=== PATIENT | male | born 1945 | race Caucasian/White ===

== ENCOUNTER 2017-11-11 00:06 | Inpatient (IN) | payer MEDICARE, MEDICAID ==
[2017-11-11] VITALS (53 sets, daily range): BP systolic 77–195; BP diastolic 27–143
[~2017-11-11] VITALS: Ht 175.3 cm; Wt 73.5 kg
[~2017-11-11 00:06] MED LIST: ASPI-495 PO; CLOP75TA15 PO; CYCL30DR; Cadexomer Iodine TP; DOCU-141 PO; ESOM40CA PO; EZET10TA14 PO; GEMF600T PO; GLIM4TAB PO; LINE600T2 PO; LISI-657 PO; METO200T3 PO; ROSU20TA PO; SITA100T PO; TAMS-12 PO; ZOLP5TAB2 PO
--- NOTE | 2017-11-11 00:06 | NUR ---
BBRA FROM HOME WITH C/O "ALTERED" AND AAOX0. PT PRESENTS TO ER BED 3 RESPONSIVE TO PAINFULY STIMULY ONLY. RESP EVEN AND SHALLOW SATING AT 86% RA. SKIN DRY AND INTACT. BLK AMUPATION NOTED. PT CAME IN WITH 18 L FOREARM IV FROM FIELD. PER DAUGHTER, LAST WELL KNOWN TIME WAS 2229." PER EMS, BLOOD GLUCOSE WAS 432 IN FIELD. BEDSIDE FOR EVAL.
--- NOTE | 2017-11-11 00:15 | NUR ---
CODE STROKE PAGED
--- NOTE | 2017-11-11 00:16 | NUR ---
CALLED [facility]. DR. DIALLO TLE PROVIDER.
--- NOTE | 2017-11-11 00:22 | NUR ---
TO CT VIA GRUNEY.
[2017-11-11] MEDS ORDERED: IOHEXOL-350 100 ML VIAL IV ONE (00:23)
[2017-11-11] MEDS ORDERED: CT SWABBABLE VALVE TRANS SET 1 EA INFUS.SET MC ONE (00:23)
[2017-11-11] MEDS ORDERED: IV NS 0.9% 500 ML IV ONE (00:25)
[2017-11-11 00:30] LABS: BASOPHILS % (AUTO) 0.2 % (0.0-2.0); HEMATOCRIT 48 % (39-51); HEMOGLOBIN 15.9 g/dL (13.5-17.5); LYMPHOCYTES # (AUTO) 0.8 /CMM (0.8-4.8); LYMPHOCYTES % (AUTO) 8.4 % (20.0-44.0); MEAN CORPUSCULAR HEMOGLOBIN 30 PG (26.0-33.0); MEAN CORPUSCULAR HGB CONC 33 g/dl (31.0-36.0); MEAN CORPUSCULAR VOLUME 89 fL (80-96); MONOCYTES # (AUTO) 0.4 /CMM (0.1-1.30); MONOCYTES % (AUTO) 3.7 % (2.0-12.0); NEUTROPHILS # (AUTO) 8.6 /CMM (1.8-8.9); NEUTROPHILS % (AUTO) 87.7 % (43.0-81.0); PLATELET COUNT (AUTO) 215 /CMM (150-450); RDW COEFFICIENT OF VARIATION 13.5 (11.5-15.0); RED BLOOD CELL COUNT(AUTO) 5.36 MIL/uL (4.5-6.0); WHITE BLOOD COUNT (AUTO) 9.9 K/uL (4.3-11.0)
--- NOTE | 2017-11-11 00:38 | NUR ---
ER TALKING TO TELESTROKE MD.
--- NOTE | 2017-11-11 00:39 | NUR ---
PT BACK FROM RADIOLOGY. PENDING CT RESULTS.
[2017-11-11 00:44] LABS: INR 0.95 (0.87-1.13)
[2017-11-11 00:45] LABS: CALCIUM, SERUM 9.2 mg/dL (8.5-10.1); CARBON DIOXIDE 25 mmol/L (21-32); CHLORIDE 99 mmol/L (98-107); CREATININE 1.4 mg/dL (0.6-1.3); POTASSIUM 4.9 mmol/L (3.5-5.1); SODIUM SERUM 132 mmol/L (136-145); UREA NITROGEN, BLOOD 19 mg/dL (7-18)
[2017-11-11 00:46] LABS: GLUCOSE 465 mg/dL (74-106)
[2017-11-11 00:52] LABS: TROPONIN I < 0.017 ng/mL (0.00-0.056)
[2017-11-11 00:54] LABS: ABG BASE EXCESS -5.5 mmol/L; ABG OXYGEN SATURATION 97.2 % (92.0-98.5); ABG PO2 114.6 mmHg (75.0-100.0); AaDO2 538.4 mmHg; COHb 2.8 % (0.5-1.5); MetHb 0.4 % (0.0-1.5); O2Hb 94.1 % (94.0-97.0); SITE, ABG Left Radial; VENT MODE, BG nrb
[2017-11-11] MEDS ORDERED: ALTEPLASE 100 MG/VIAL VIAL IV ONE (01:00)
[2017-11-11 01:09] LABS: CHOLESTEROL 284 mg/dL (<200); HDL CHOLESTEROL 29 mg/dL (40-60); LDL 165 mg/dL (0-99); TRIGLYCERIDES 610 mg/dL (30-150)
--- NOTE | 2017-11-11 01:15 | NUR ---
INFORMED BY DR. ALLEN TO NOT ADMINISTER ALTEPLASE PER TELE NEUROLOGY.
--- NOTE | 2017-11-11 01:21 | NUR ---
RT WANDER, REJI TELLEZ, ER MD ALLEN, EMT ELI AT BEDSIDE FOR INTUBATION.
--- NOTE | 2017-11-11 01:22 | NUR ---
MED FOR INTUBATION GIVEN BY REJI EUCEDA.
[2017-11-11] MEDS ORDERED: PROPOFOL 100 ML ONE (01:24)
--- NOTE | 2017-11-11 01:24 | NUR ---
PT INTUBATED BY DR. ALLEN ET-TUBE 7.5 FR, 23CM AT THE LIP LINE, (+) COLOR CHANGE ON THE CO2 DETECTOR WITH BILATERAL EQUAL BREATH SOUNDS. RT AT BEDSIDE TO PLACE PT ON VENT. VENT SETTING AC-16, TV-500, FIO2-100%, PEEP-5. WILL CONTINUE TO MONITOR PT CLOSELY.
[2017-11-11] MEDS: PROPOFOL 100 ML IV PRN ×6 (01:25→21:50)
--- NOTE | 2017-11-11 01:35 | NUR ---
INCREASED PROPOFOL TO 10MCG/KG/MIN. PT STILL AGITATTED AND MOVING, MD MADE AWARE. MD ORDERED PROPOFOL TITRATION TO BE SET TO 30MCG/KG/MIN.
--- NOTE | 2017-11-11 01:38 | NUR ---
RT NOTE PT ORALLY INTUBATED VIA ETT #7.5 23CM AT LIP PER ABG RESULT AND DR ALLEN REQUEST. PT PLACED ON [facility] VENT ON SETTINGS CHARTED. HOME HEALTH LVN CUFF PRESSURE NOTED. VENT PLUGGED INTO RED OUTLET. ALARMS ARE SET AND AUDIBLE. AMBU BAG BEDSIDE, WILL CONTINUE TO MONITOR Addendum: 11/11/17 at 0141 by WANDER BLAKE RT Amended: Links added.
--- NOTE | 2017-11-11 01:44 | NUR ---
ICU 263
[2017-11-11] MEDS ORDERED: INSULIN ASPART/LISPRO 100 UNIT/ML CARTRIDGE SQ STA (02:01)
--- NOTE | 2017-11-11 02:11 | NUR ---
DAI BOLIVAR DAUGHTER..
[2017-11-11 02:16] LABS: ABG BASE EXCESS -6.9 mmol/L; ABG OXYGEN SATURATION 99.4 % (92.0-98.5); ABG PCO2 63.4 mmHg (35.0-45.0); ABG PH 7.176 (7.350-7.450); ABG PO2 416.2 mmHg (75.0-100.0); AaDO2 233.4 mmHg; COHb 1.9 % (0.5-1.5); MetHb 0.6 % (0.0-1.5); O2Hb 96.9 % (94.0-97.0); SITE, ABG Left Radial; VENT MODE, BG AC 16 500 100% +5
--- NOTE | 2017-11-11 02:18 | NUR ---
RT ABG RESULTS SHOWN TO DR ALLEN. INCREASED RR TO 25, DECREASED FIO2 TO 50% PER DR ALLEN. WILL CONTINUE TO MONITOR. Addendum: 11/11/17 at 0219 by WANDER BLAKE RT Amended: Links added.
[2017-11-11] MEDS ORDERED: INSULIN REGULAR, HUMAN 100 UNIT/ML 10 ML VIAL ONE (02:24)
--- NOTE | 2017-11-11 02:28 | NUR ---
VERIFIED REGULAR INSULIN SQ 12UNIT GIVEN BY REJI TELLEZ.
[2017-11-11] MEDS ORDERED: ROCURONIUM BROMIDE 50 MG/5 ML IV ONE (02:30)
[2017-11-11] MEDS ORDERED: IV NS 0.9% 1,000 ML BAG IV ONE (02:30)
[2017-11-11] MEDS ORDERED: ETOMIDATE 2 MG/ML VIAL IV ONE (02:30)
[2017-11-11] MEDS ORDERED: INSULIN REGULAR, HUMAN 100 UNIT/ML 10 ML VIAL SQ ONE (02:30)
[2017-11-11] MEDS ORDERED: PIPERACILLIN /TAZOBACTAM 3.375 G in IV D5W 50 ML IV ONE (02:30)
--- NOTE | 2017-11-11 02:58 | NUR ---
RT AT BEDSIDE FOR ABG.
--- NOTE | 2017-11-11 03:00 | NUR ---
LAB CULTURES DRAWN UPON ARRIVAL TO ED BEFORE THE START OF ANTIBIOTICS PER VERBAL ORDER FROM DR. ALLEN.
[2017-11-11] MEDS ORDERED: HYDROMORPHONE 1 MG/1 ML DISP.SYRIN IV STA (03:17)
[2017-11-11 03:19] LABS: ABG BASE EXCESS -7.7 mmol/L; ABG PCO2 51.3 mmHg (35.0-45.0); ABG PH 7.219 (7.350-7.450); ABG PO2 95.6 mmHg (75.0-100.0); AaDO2 203.2 mmHg; COHb 1.6 % (0.5-1.5); MetHb 0.6 % (0.0-1.5); O2Hb 93.9 % (94.0-97.0); SITE, ABG Left Radial; VENT MODE, BG AC 25 500 50% +5
[2017-11-11] MEDS ORDERED: HYDROMORPHONE INJ 0.5 MG/0.5 ML SYRINGE ONE (03:24)
--- NOTE | 2017-11-11 03:25 | NUR ---
RT ABG RESULTS GIVEN TO DR ALLEN. INCREASED RR TO [address] ALLEN REQUEST. WILL CONTINUE TO MONITOR Addendum: 11/11/17 at 0326 by WANDER BLAKE RT Amended: Links added.
[2017-11-11] MEDS ORDERED: VANCOMYCIN 1 GM in IV D5W 250 ML IV STA (03:55)
[2017-11-11 04:28] LABS: APPEARANCE,URINE CLEAR (CLEAR); BILIRUBIN,URINE NEGATIVE (NEGATIVE); BLOOD, URINE 1+ Ery/uL (NEGATIVE); COLOR,URINE YELLOW (YELLOW); KETONES,URINE NEGATIVE (NEGATIVE); LEUKOCYTE ESTERASE ,URINE NEGATIVE (NEGATIVE); NITRITE, URINE NEGATIVE (NEGATIVE); PROTEIN,URINE 1+ mg/dl (NEGATIVE); UGLUCOSE 3+ mg/dL (NEGATIVE); UROBILINOGEN,URINE 0.2 EU/dL (0.2)
[2017-11-11] MEDS ORDERED: VANCOMYCIN 1 GM VIAL ONE (04:34)
[2017-11-11 04:36] LABS: BACTERIA,URINE None seen /HPF (None Seen); SQUAMOUS EPITHELIAL CELL,UR Few /HPF (None Seen); URINE AMORPHOUS URATE Few /HPF (None Seen); WBC,URINE 0-2 /HPF (0-3)
--- NOTE | 2017-11-11 04:40 | NUR ---
GAVE REPORT TO ICU NURSE FOR ERICA
--- NOTE | 2017-11-11 05:25 | NUR ---
EMT, RT, AND RN BEDSIDE FOR TRANSPORT TO ICU WITH ACLS PROTOCOL.
[2017-11-11] MEDS: IV NS 0.9% 1,000 ML IV PRN ×2 (06:40→21:44)
--- NOTE | 2017-11-11 06:45 | NUR ---
CASH APPLICATIONS SPECIALIST. ADMISSION.RECEIVED THE PT FROM ER VIA [facility]. ORALLY INTUBATED. SEDATED WITH DIPRIVAN. ADMITTED FOR RESPIRATORY FAILURE.AND STROKE, ETT 7.5,LIP 23CM,AC 25,TV 500,FIO2 50%,PEEP 5. SAT 98%. SCOUT EXECUTIVE SHOWING NSR. RT NARE NGT INTACT, CLAMPED. IV RT HAND 20G. IVF NS 75ML/H,DIPRIVAN 40MCG/KG/MIN.HOB ELEVATED. FC PATENT. WILL CONTINUE TO MONITOR VITALS.
--- NOTE | 2017-11-11 07:09 | NUR ---
PATCHER WOOD WELDER.NEURO CHECK UNABLE TO ASSESS. PT ON DIPRIVAN.
--- NOTE | 2017-11-11 07:13 | NUR ---
TEXTED DR. PERERA FOR MRI APPROVAL.
[2017-11-11] MEDS ORDERED: BLOOD SUGAR DIAGNOSTIC 1 EACH STRIP IN SCH ×5 (07:30→13:00)
[2017-11-11] MEDS ORDERED: FEE PK DOSING 1 MIN EA MC ONE (07:42)
--- NOTE | 2017-11-11 08:00 | NUR ---
SENIOR MOBILE APPLICATION DEVELOPER: pt.is sedated with Diprivan 40 mcg/kg/min well, on wrists restraints, reactive by pain stimuli, unable to assess stroke scale/NIHSS scale score, Neurologist consult order+, head CT: no acute findings, SR, SBP over 110 below 150, MAP 79-91, O2 sat. over 96%, T WNL, accuV AC HS, BS was 465 (nobody notified), now 393, current order: mild sl.scale, but not in eMAR, will fix, pH 7.17 last night/will repeat ABG, RD called: MRI is not approved, was in room/updated, see new orders, pt.has R.lung CA, 2D echo in process
[2017-11-11 08:30] LABS: BASOPHILS % (AUTO) 0.3 % (0.0-2.0); HEMATOCRIT 43 % (39-51); HEMOGLOBIN 14.4 g/dL (13.5-17.5); LYMPHOCYTES # (AUTO) 1.1 /CMM (0.8-4.8); LYMPHOCYTES % (AUTO) 12.7 % (20.0-44.0); MEAN CORPUSCULAR HEMOGLOBIN 30 PG (26.0-33.0); MEAN CORPUSCULAR HGB CONC 34 g/dl (31.0-36.0); MEAN CORPUSCULAR VOLUME 89 fL (80-96); MONOCYTES # (AUTO) 0.7 /CMM (0.1-1.30); MONOCYTES % (AUTO) 8.1 % (2.0-12.0); NEUTROPHILS # (AUTO) 6.7 /CMM (1.8-8.9); NEUTROPHILS % (AUTO) 78.9 % (43.0-81.0); PLATELET COUNT (AUTO) 221 /CMM (150-450); RDW COEFFICIENT OF VARIATION 13.8 (11.5-15.0); RED BLOOD CELL COUNT(AUTO) 4.79 MIL/uL (4.5-6.0); WHITE BLOOD COUNT (AUTO) 8.5 K/uL (4.3-11.0)
[2017-11-11 08:38] LABS: ABG BASE EXCESS -1.5 mmol/L; ABG OXYGEN SATURATION 99.1 % (92.0-98.5); ABG PCO2 32.4 mmHg (35.0-45.0); ABG PH 7.444 (7.350-7.450); AaDO2 108.1 mmHg; COHb 0.7 % (0.5-1.5); MetHb 0.3 % (0.0-1.5); O2Hb 98.1 % (94.0-97.0); PEEP,BG 5 cm H2O; SITE, ABG Right Brachial; VT, ABG 500 mL
--- NOTE | 2017-11-11 08:46 | NUR ---
DECREASED FIO2 FROM 50% TO 30% DUE TO PAO2 212 / SPO2 100% Addendum: 11/11/17 at 0846 by VANI DE LA O RT Amended: Links added.
--- NOTE | 2017-11-11 08:54 | NUR ---
INITIAL FINDING OF ECHO STUDY SHOWED EF OF 30%~. INFORMED ATTENDING NURSE OF RESULT.
[2017-11-11 08:55] LABS: ALANINE AMINOTRANSFERASE 11 U/L (12-78); ALBUMIN 2.9 g/dL (3.4-5.0); ALKALINE PHOSPHATASE 104 U/L (46-116); ASPARTATE AMINOTRANSFERASE 9 U/L (15-37); BILIRUBIN,TOTAL 0.3 mg/dL (0.2-1.0); CALCIUM, SERUM 9.1 mg/dL (8.5-10.1); CARBON DIOXIDE 23 mmol/L (21-32); CHLORIDE 102 mmol/L (98-107); CREATININE 1.5 mg/dL (0.6-1.3); MAGNESIUM 1.9 mg/dL (1.8-2.4); POTASSIUM 4.9 mmol/L (3.5-5.1); SODIUM SERUM 135 mmol/L (136-145); TOTAL PROTEIN, SERUM 6.7 g/dL (6.4-8.2); UREA NITROGEN, BLOOD 21 mg/dL (7-18)
[2017-11-11 09:00] LABS: GLUCOSE 404 mg/dL (74-106)
[2017-11-11] MEDS ORDERED: INSULIN REGULAR, HUMAN 100 UNIT/ML 3 ML VIAL SQ PRN (09:00)
[2017-11-11] MEDS ORDERED: GEMFIBROZIL 600 MG TABLET PO SCH (09:00)
[2017-11-11] MEDS ORDERED: DEXTROSE 50%-WATER 50 ML DISP.SYRIN IV PRN ×3 (09:00→13:00)
[2017-11-11] MEDS ORDERED: TAMSULOSIN 0.4 MG CAP.SR.24H PO SCH (09:00)
[2017-11-11] MEDS ORDERED: LINAGLIPTIN 5 MG TABLET PO SCH (09:00)
[2017-11-11] MEDS ORDERED: DOCUSATE SODIUM 100 MG CAPSULE PO SCH (09:00)
[2017-11-11] MEDS ORDERED: ASPIRIN EC 81 MG TABLET.DR PO SCH (09:00)
[2017-11-11] MEDS ORDERED: EZETIMIBE 10 MG TABLET PO SCH (09:00)
[2017-11-11] MEDS ORDERED: GLIMEPIRIDE 4 MG TABLET PO SCH (09:00)
--- NOTE | 2017-11-11 09:00 | NUR ---
FOUNDRY EQUIPMENT MECHANIC: pt.is on Aspirin, Plavix Addendum: 11/11/17 at 1633 by MANJULA MAHAN RN Amended: Links added.
[2017-11-11] MEDS: INSULIN REGULAR, HUMAN 100 UNIT/ML 3 ML VIAL SQ PRN ×4 (09:14→21:53)
--- NOTE | 2017-11-11 09:20 | NUR ---
RN ICI: updated re pt.condition,VS, I/O, IVF, labs, d/rebekah all PO DM meds, ordered Lantus 10 units sq q12h
[2017-11-11] MEDS: CLOPIDOGREL BISULFATE 75 MG TABLET PO SCH (09:40)
[2017-11-11] MEDS: ATORVASTATIN 40 MG TABLET PO SCH (09:40)
[2017-11-11] MEDS: PIPERACILLIN /TAZOBACTAM 3.375 G in IV D5W 50 ML IV SCH ×3 (09:47→21:42)
[2017-11-11] MEDS: PANTOPRAZOLE 40 MG VIAL IV SCH (09:49)
[2017-11-11] MEDS ORDERED: INSULIN GLARGINE, 100 UNIT/ML CARTRIDGE SQ SCH (10:00)
--- NOTE | 2017-11-11 10:00 | NUR ---
KEY ENTRY OPERATOR: evaluated pt., ABG, VS, sedation level, notified re all above, decreased FiO2. Fax with Lantus order was sent to pharmacy
[2017-11-11 10:11] LABS: CREATININE, URINE 39.8 MG/DL (30.0-125.0); URINE TOTAL PROTEIN 42.9 mg/dL (0-11.9)
--- NOTE | 2017-11-11 10:19 | NUR ---
GRANITE CUTTER APPRENTICE: pt.was transferred to ICU intubated/sedated, head CT: no acute finding, MRI is not approved, is on case, continue neurostatus assessment f/u orders, BS 404, 392/ notified/got new orders, VS WNL Addendum: 11/11/17 at 1024 by MANJULA MAHAN RN Amended: Links added.
--- NOTE | 2017-11-11 10:30 | NUR ---
IRONWORKER FOREMAN: pt daughter is in room, notified re pt.condition, sedation, VS, orders, POC, pt.is easy to be awake up after suction, reposition with restless, strong coughing, arms/R leg activity, increased sedation
--- NOTE | 2017-11-11 11:50 | NUR ---
STAMP MOUNTER: called to pharmacy to get Smitha White, is in room, updated with pt.current condition, sedation level, VS, I/O, labs, IVF, NPO, orders, spoke with pt.daughter
[2017-11-11] MEDS: BLOOD SUGAR DIAGNOSTIC 1 EACH STRIP IN SCH ×3 (12:59→21:50)
--- NOTE | 2017-11-11 13:40 | NUR ---
STUDENT FINANCIAL AID MANAGER: charge nurse updated: spoke with pt.daughter re Dx, POC, got Lantus from now from pharmacy instead 10.00 dose time, order: q12h, will charge doses time for 14.00, 02.00.
--- NOTE | 2017-11-11 14:30 | NUR ---
COREMAKER EXPERIMENTAL: RD called re chest CT order, sedation was increased and pt.is easy to get restless now with any reposition, suction, strong coughing episodes, notified: said ok to go for CT tomorrow morning, will endorse next nurse
[2017-11-11] MEDS: methylPREDNISolone SOD SUCC 125 MG/2ML VIAL IV SCH ×2 (14:49→21:42)
[2017-11-11] MEDS ORDERED: ETOMIDATE 2 MG/ML VIAL ONE (16:17)
[2017-11-11] MEDS: IPRATROPIUM NEB FS 0.5 MG/2.5 ML AMPUL.NEB NEB SCH ×3 (16:42→23:18)
[2017-11-11] MEDS: ALBUTEROL HALF STRENGTH 1.25 MG/3 ML VIAL.NEB NEB SCH ×3 (16:42→23:18)
[2017-11-11] MEDS: VANCOMYCIN 0.75 GM in IV NS 0.9% 250 ML IV SCH (17:24)
[2017-11-11] MEDS ORDERED: PEG 3350/NA SULF,BICARB,CL/KCL 4,000 ML BOTTLE PO ONE (18:00)
--- NOTE | 2017-11-11 19:09 | NUR ---
MRI ON HOLD,PATIENT ON VENT.DR. PERERA SPOKE WITH NEUROLOGY OK TO HOLD FOR NOW.
--- NOTE | 2017-11-11 19:30 | NUR ---
RN NOTE Received patient sedated, on 70mcg/kg/min of Propofol. On ETT .02/14, [facility] vent settings tolerated well at this time. suctioned airway as needed. 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 Right NGT in place, placement verified, no gastric residual, clamped and on NPO. F/C in place, via gravity. safety and comfort ensured. bed in low and locked position. will monitor closely.
[2017-11-12] VITALS (46 sets, daily range): BP systolic 94–152; BP diastolic 51–84
[2017-11-12] MEDS: PROPOFOL 100 ML IV PRN ×6 (02:08→20:07)
[2017-11-12] MEDS: PIPERACILLIN /TAZOBACTAM 3.375 G in IV D5W 50 ML IV SCH ×4 (02:10→20:45)
[2017-11-12] MEDS: BLOOD SUGAR DIAGNOSTIC 1 EACH STRIP IN SCH ×6 (02:11→20:45)
[2017-11-12] MEDS: INSULIN REGULAR, HUMAN 100 UNIT/ML 3 ML VIAL SQ PRN ×6 (02:14→20:56)
[2017-11-12] MEDS: INSULIN GLARGINE, 100 UNIT/ML CARTRIDGE SQ SCH ×2 (02:24→13:42)
--- NOTE | 2017-11-12 02:56 | NUR ---
RN NOTE Patient was able to be titrated down from propofol, was at 70mcg/kg/min and was down to 50mcg/kg/min. Patient however was observed to become agitated with accumulation of secretions orally. propofol titrated up to 55mcg/kg/min, with help at this time. VS stable, on close monitoring.
[2017-11-12] MEDS: IPRATROPIUM NEB FS 0.5 MG/2.5 ML AMPUL.NEB NEB SCH ×5 (03:24→19:46)
[2017-11-12] MEDS: ALBUTEROL HALF STRENGTH 1.25 MG/3 ML VIAL.NEB NEB SCH ×5 (03:24→19:46)
[2017-11-12 05:00] LABS: HEMATOCRIT 41 % (39-51); HEMOGLOBIN 13.8 g/dL (13.5-17.5); LYMPHOCYTES # (AUTO) 0.5 /CMM (0.8-4.8); LYMPHOCYTES % (AUTO) 6.4 % (20.0-44.0); MEAN CORPUSCULAR HEMOGLOBIN 30 PG (26.0-33.0); MEAN CORPUSCULAR HGB CONC 34 g/dl (31.0-36.0); MEAN CORPUSCULAR VOLUME 89 fL (80-96); MONOCYTES # (AUTO) 0.2 /CMM (0.1-1.30); MONOCYTES % (AUTO) 2.6 % (2.0-12.0); PLATELET COUNT (AUTO) 208 /CMM (150-450); RDW COEFFICIENT OF VARIATION 14.2 (11.5-15.0); RED BLOOD CELL COUNT(AUTO) 4.59 MIL/uL (4.5-6.0); WHITE BLOOD COUNT (AUTO) 7.7 K/uL (4.3-11.0)
[2017-11-12] MEDS: VANCOMYCIN 0.75 GM in IV NS 0.9% 250 ML IV SCH ×2 (05:09→17:23)
[2017-11-12 05:24] LABS: TROPONIN I 0.316 ng/mL (0.00-0.056)
[2017-11-12 05:29] LABS: ALANINE AMINOTRANSFERASE 10 U/L (12-78); ALBUMIN 2.7 g/dL (3.4-5.0); ALKALINE PHOSPHATASE 89 U/L (46-116); ASPARTATE AMINOTRANSFERASE 16 U/L (15-37); BILIRUBIN,TOTAL 0.3 mg/dL (0.2-1.0); CALCIUM, SERUM 9.2 mg/dL (8.5-10.1); CARBON DIOXIDE 22 mmol/L (21-32); CHLORIDE 103 mmol/L (98-107); CREATININE 1.4 mg/dL (0.6-1.3); GLUCOSE 276 mg/dL (74-106); MAGNESIUM 1.7 mg/dL (1.8-2.4); PHOSPHORUS 3.3 mg/dL (2.5-4.9); POTASSIUM 4.1 mmol/L (3.5-5.1); SODIUM SERUM 136 mmol/L (136-145); TOTAL PROTEIN, SERUM 6.6 g/dL (6.4-8.2); UREA NITROGEN, BLOOD 22 mg/dL (7-18)
[2017-11-12 05:32] LABS: CHOLESTEROL 249 mg/dL (<200); HDL CHOLESTEROL 34 mg/dL (40-60); LDL 171 mg/dL (0-99); THYROID STIMULATING HORMONE 0.398 uIU/mL (0.358-3.74); TRIGLYCERIDES 252 mg/dL (30-150)
--- NOTE | 2017-11-12 06:36 | NUR ---
RN NOTE PATIENT WITH NO ACUTE CHANGE IN CONDITION OBSERVED OVERNIGHT. ON 55mcg/kg/min, PATIENT IS SEDATED, VS STABLE. MECH VENT TOLERATED WELL. AIRWAY SUCTIONED. F/C INTACT. NGT CLAMPED. PATIENT TURNED AND REPOSITIONED. SAFETY AND COMFORT ENSURED. WILL ENDORSE ACCORDINGLY FOR CONTINUITY OF CARE.
[2017-11-12] MEDS ORDERED: Z GUARD REMEDY 4 OZ OINT TP PRN (07:00)
[2017-11-12] MEDS ORDERED: PANTOPRAZOLE 40 MG TABLET.DR PO SCH (07:30)
--- NOTE | 2017-11-12 07:37 | NUR ---
PIT RECORDER NOTE RCVD PT SEDATED, INTUBATED ETT 7.5 23 AT LIP TOLERATING ORDERED VENT SETTINGS WELL. SR ON TELE. BILATERAL SOFT WRIST RESTRAINTS IN PLACE. CIRCULATION CHECKS MADE. NG-TUBE PLACEMENT VERIFIED BY AUSCULTATION/ASPIRATION NO GASTRIC RESIDUAL OBTAINED. CONNELLY DRAINING CLEAR, YELLOW URINE. IV SITES C/D/I/PATENT. NO S/O INFILTRATION/PHLEBITIS OBSERVED UPON FLUSHING. WILL CONTINUE TO MONITOR PT FOR SAFETY AND COMFORT. CALL LIGHT WITHIN REACH. BED IN LOW AND LOCKED POSITION.
[2017-11-12] MEDS: ATORVASTATIN 40 MG TABLET PO SCH (08:28)
[2017-11-12] MEDS: methylPREDNISolone SOD SUCC 125 MG/2ML VIAL IV SCH ×2 (08:28→17:23)
[2017-11-12] MEDS: CLOPIDOGREL BISULFATE 75 MG TABLET PO SCH (08:29)
[2017-11-12] MEDS: Magnesium 1GM/D5W 100ML PREMIX 100 ML IV SCH ×2 (08:29→10:08)
[2017-11-12 08:30] LABS: ABG BASE EXCESS -5.2 mmol/L; ABG OXYGEN SATURATION 98.1 % (92.0-98.5); ABG PCO2 32.1 mmHg (35.0-45.0); ABG PH 7.384 (7.350-7.450); ABG PO2 129.7 mmHg (75.0-100.0); AaDO2 46.5 mmHg; COHb 0.1 % (0.5-1.5); MetHb 0.4 % (0.0-1.5); O2Hb 97.6 % (94.0-97.0); PEEP,BG 5 cm H2O; SITE, ABG Right Brachial; VT, ABG 500 mL
[2017-11-12] MEDS: PANTOPRAZOLE 40 MG VIAL IV SCH (08:31)
--- NOTE | 2017-11-12 09:10 | NUR ---
DECREASED FIO2 FROM 30% TO 28% DUE TO PAO2 129 / SPO2 100% Addendum: 11/12/17 at 0910 by VANI DE LA O RT Amended: Links added.
[2017-11-12] MEDS: ASPIRIN 81 MG TAB.CHEW PO SCH (09:19)
--- NOTE | 2017-11-12 09:37 | NUR ---
CLOSING SUPERVISOR NOTE PT TRANSPORTED TO RADIOLOGY FOR CT CHEST VIA MONITORED BED WITH RT AND RN AT BEDSIDE. PT'S VITAL SIGNS REMAINED STABLE DURING TRANSPORT, ON SEDATION.
--- NOTE | 2017-11-12 10:35 | NUR ---
SENIOR ARCHITECT/DESIGN MANAGER NOTE RADIOLOGY CALLED REQUESTING CT SCAN REPORT TO BE READ. DR. LINDSEY AND PT'S FAMILY IN UNIT. NEED TO DETERMINE PLAN OF CARE. AZRA WILL CALL FOR REPORT TO BE READ.
--- NOTE | 2017-11-12 11:01 | NUR ---
AMBULATORY CARE NURSE NOTE SEDATION VACATION DONE. PT ABLE TO FOLLOW SIMPLE COMMANDS SUCH OPEN AND CLOSE EYES, STICK TONGUE OUT. UNABLE TO SQUEEZE WITH BILATERAL HANDS. PT'S DAUGHTER AT BEDSIDE SERVED WATER SPONGER. SHE WAS UPDATED ON PT'S CONDITION. PT PLACED BACK ON SEDATION. VITAL REMAIN STABLE.
--- NOTE | 2017-11-12 19:06 | NUR ---
REAMING MACHINE TENDER NOTE PT REMAINS SEDATED, INTUBATED, TOLERATING ORDERED VENT SETTINGS WELL. SR ON TELE WITH 1ST DEGREE AV BLOCK. NG TUBE PLACEMENT VERIFIED BY AUSCULTATION/ASPIRATION. NO GASTRIC CONTENT OBTAINED UPON ASPIRATION. CONNELLY TO GRAVITY DRAINING CLEAR YELLOW URINE. IV SITES REMAIN C/D/I/PATENT. NO S/O INFILTRATION/PHLEBITIS OBSERVED UPON FLUSHING. PT'S CARE WILL BE ENDORSED TO KENO WRITER / RUNNER RN FOR CONTINUITY OF CARE.
--- NOTE | 2017-11-12 20:00 | NUR ---
SMT MACHINE OPERATOR NOTE PT RECEIVED IN BED SEDATED, INTUBATED ETT 7.5 23 AT LIP, TOLERATING THE VENT SETTINGS WELL. ON TELE MONITOR SR WITH 1ST DEGREE AV BLOCK HR 74. NO DISTRESS OR DISCOMFORT NOTED. NO S/S OF PAIN NOTED. ON BILATERAL SOFT WRIST RESTRAINTS ON. SKIN AROUND RESTRAINTS WNL. NGT RT NARE INTACT, PATENT AND IN PLACE. F/C INTACT AND PATENT DRAINING YELLOWISH COLOR URINE. IV SITE INTACT AND PATENT, NO S/S OF INFILTRATION NOTED. REMAIN ON DIPRIVAN 45 MCG/KG/HR INFUSING WELL. REPOSITION HIM FOR SKIN MANAGEMENT. SIDE RIALS UP X 3 AND CALL LIGHT WITHIN REACH. VSS. CONTINUE TO MONITOR HIM.
[2017-11-13] VITALS (54 sets, daily range): BP systolic 86–151; BP diastolic 48–83
[2017-11-13] MEDS: IPRATROPIUM NEB FS 0.5 MG/2.5 ML AMPUL.NEB NEB SCH ×6 (00:24→19:46)
[2017-11-13] MEDS: ALBUTEROL HALF STRENGTH 1.25 MG/3 ML VIAL.NEB NEB SCH ×6 (00:24→19:46)
[2017-11-13] MEDS: PROPOFOL 100 ML IV PRN ×5 (00:27→18:04)
[2017-11-13] MEDS: BLOOD SUGAR DIAGNOSTIC 1 EACH STRIP IN SCH ×6 (00:58→20:50)
[2017-11-13] MEDS: INSULIN REGULAR, HUMAN 100 UNIT/ML 3 ML VIAL SQ PRN ×6 (01:00→20:51)
[2017-11-13] MEDS: INSULIN GLARGINE, 100 UNIT/ML CARTRIDGE SQ SCH ×2 (01:03→14:22)
[2017-11-13] MEDS: PIPERACILLIN /TAZOBACTAM 3.375 G in IV D5W 50 ML IV SCH ×4 (02:29→20:49)
[2017-11-13 05:19] LABS: HEMATOCRIT 41 % (39-51); HEMOGLOBIN 13.8 g/dL (13.5-17.5); LYMPHOCYTES # (AUTO) 0.6 /CMM (0.8-4.8); LYMPHOCYTES % (AUTO) 6.9 % (20.0-44.0); MEAN CORPUSCULAR HEMOGLOBIN 30 PG (26.0-33.0); MEAN CORPUSCULAR HGB CONC 34 g/dl (31.0-36.0); MEAN CORPUSCULAR VOLUME 89 fL (80-96); MONOCYTES # (AUTO) 0.5 /CMM (0.1-1.30); MONOCYTES % (AUTO) 5.4 % (2.0-12.0); NEUTROPHILS # (AUTO) 8.2 /CMM (1.8-8.9); NEUTROPHILS % (AUTO) 87.7 % (43.0-81.0); PLATELET COUNT (AUTO) 213 /CMM (150-450); RDW COEFFICIENT OF VARIATION 13.7 (11.5-15.0); RED BLOOD CELL COUNT(AUTO) 4.57 MIL/uL (4.5-6.0); WHITE BLOOD COUNT (AUTO) 9.4 K/uL (4.3-11.0)
[2017-11-13 05:36] LABS: CALCIUM, SERUM 9.2 mg/dL (8.5-10.1); CARBON DIOXIDE 24 mmol/L (21-32); CHLORIDE 102 mmol/L (98-107); CREATININE 1.5 mg/dL (0.6-1.3); GLUCOSE 223 mg/dL (74-106); PHOSPHORUS 4.4 mg/dL (2.5-4.9); POTASSIUM 4.2 mmol/L (3.5-5.1); SODIUM SERUM 136 mmol/L (136-145); UREA NITROGEN, BLOOD 23 mg/dL (7-18)
[2017-11-13] MEDS: VANCOMYCIN 0.75 GM in IV NS 0.9% 250 ML IV SCH ×2 (06:04→16:53)
--- NOTE | 2017-11-13 06:39 | NUR ---
DIGITAL MARKETING OFFICER NOTE PT IN BED SEDATED. NO CHANGE IN CONDITION. ETT INTACT, PT TOLERATING VENT SETTINGS WELL. SUCTIONED HIM FREQUENTLY. CONTINUE ON DIPRIVAN 45 MCG/KG/HR. F/C INTACT AND PATENT DRAINING YELLOWISH COLOR URINE. REPOSITION HIM Q2H, KEPT HIM DRY AND CLEAN. ALL NEEDS ATTENDED. WILL ENDORSE TO DAY SHIFT NURSE FOR CONTINUE TO CARE.
--- NOTE | 2017-11-13 07:40 | NUR ---
INITIAL UTILIZATION COORDINATOR NOTE RCVD PT SEDATED, INTUBATED ETT 7.5 23 AT LIP, TOLERATING ORDERED VENT SETTINGS, ON BILATERAL SOFT WRIST RESTRAINTS. CIRCULATION CHECKS DONE. NG-TUBE PLACEMENT VERIFIED BY AUSCULTATION/ASPIRATION. GASTRIC CONTENTS OBSERVED. CONNELLY TO GRAVITY DRAINING CLEAR, YELLOW URINE. IV SITES C/D/I/PATENT. NO S/O INFILTRATION/PHLEBITIS OBSERVED UPON FLUSHING. WILL CONTINUE TO MONITOR PT FOR SAFETY AND COMFORT. CALL LIGHT WITHIN REACH. BED IN LOW AND LOCKED POSITION.
[2017-11-13] MEDS: CLOPIDOGREL BISULFATE 75 MG TABLET PO SCH (08:08)
[2017-11-13] MEDS: methylPREDNISolone SOD SUCC 125 MG/2ML VIAL IV SCH ×2 (08:08→16:53)
[2017-11-13] MEDS: ASPIRIN 81 MG TAB.CHEW PO SCH (08:08)
[2017-11-13] MEDS: ATORVASTATIN 40 MG TABLET PO SCH (08:08)
[2017-11-13] MEDS: PANTOPRAZOLE 40 MG VIAL IV SCH (08:34)
[2017-11-13 08:39] LABS: ABG BASE EXCESS -2.9 mmol/L; ABG OXYGEN SATURATION 97.7 % (92.0-98.5); ABG PCO2 35.7 mmHg (35.0-45.0); ABG PH 7.394 (7.350-7.450); ABG PO2 119.7 mmHg (75.0-100.0); AaDO2 37.8 mmHg; COHb 0.4 % (0.5-1.5); MetHb 0.4 % (0.0-1.5); O2Hb 96.9 % (94.0-97.0); PEEP,BG 5 cm H2O; SITE, ABG Right Brachial; VT, ABG 500 mL
--- NOTE | 2017-11-13 08:53 | NUR ---
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 SCARRING NOTED TO RT ANKLE AND SACRAL AREA. ALL SKIN PROTECTION RECOMMENDATIONS DISCUSSED WITH NURSING STAFF. RECOMMEND SURGICAL CONSULT FOR LEFT LEG ESCHAR. PT ON FIRST STEP MATTRESS. CURRENT YOLANDA SCORE IS 10. WILL SEE PRN. GONZALEZ IN AGREEMENT WITH PLAN OF CARE. Addendum: 11/13/17 at 0856 by MOSES BROWER WNDNU Amended: Links added.
--- NOTE | 2017-11-13 10:11 | NUR ---
LISW NOTE DR. BEAR IN UNIT ASSESSING PT SHE WAS UPDATED ON PT'S CONDITION. SHE RECOMMENDED TO DISCONTINUE STROKE BUNDLE AT THIS TIME SINCE SHE DOES NOT BELIEVE PT HAD STROKE DURING THIS ADMISSION. PER HER RECOMMENDATION WILL DISCONTINUE STROKE ASSESSMENTS.
--- NOTE | 2017-11-13 10:46 | NUR ---
SPRAY MIXER NOTE SEDATION VACATION PERFORMED VIA IRANIAN CAR CONSTRUCTION SUPERINTENDENT, VIC RUTH. PT ABLE TO FOLLOW COMMANDS SUCH SQUEEZE HANDS BILATERALLY, OPEN/CLOSE EYES. WILL CONTINUE TO MONITOR.
--- NOTE | 2017-11-13 11:15 | NUR ---
Social service consult requested by RUBÉN Tate for Stroke. Pt. is a 72 year old male who was admitted to [facility] for Respiratory failure. SW is unable to meet with pt. at this time since pt. is intubated. SW to follow up with pt. once pt. is extubated.
--- NOTE | 2017-11-13 15:23 | NUR ---
STANDPIPE TENDER NOTE BRONCHOSCOPY R/S FOR TOMORROW, PT'S DAUGHTER UPDATED.
--- NOTE | 2017-11-13 19:21 | NUR ---
COMMERCIAL TITLE EXAMINER NOTE PT LIGHTLY SEDATED, INTUBATED TOLERATING VENT SETTINGS WELL. SR ON TELE WITH 1ST AVB AND OCCASIONAL PVC. BILATERAL SOFT WRIST RESTRAINTS IN PLACE. CIRCULATION CHECKS DONE. NG-TUBE PLACEMENT VERIFIED BY AUSCULTATION/ASPIRATION. CONNELLY OT GRAVITY DRAINING YELLOW URINE. IV SITES REMAIN C/D/I/PATENT. NO S/O INFILTRATION/PHLEBITIS OBSERVED UPON FLUSHING. PT'S CARE ENDORSED TO RADIATION ENGINEER RN FOR CONTINUITY OF CARE. BED IN LOW AND LOCKED POSITION.
--- NOTE | 2017-11-13 20:00 | NUR ---
CYLINDER DEVALVER - NOTES - RECEIVED PT SEDATED, INTUBATED ETT 7.5 23 AT LIP, TOLERATING ORDERED VENT SETTINGS, ON BILATERAL SOFT WRIST RESTRAINTS. CIRCULATION CHECKS DONE. NG-TUBE PLACEMENT VERIFIED BY AUSCULTATION/ASPIRATION. GASTRIC CONTENTS OBSERVED. CONNELLY TO GRAVITY DRAINING CLEAR, YELLOW URINE. IV SITES C/D/I/PATENT. NO S/O INFILTRATION/PHLEBITIS OBSERVED UPON FLUSHING. WILL CONTINUE TO MONITOR PT FOR SAFETY AND COMFORT. CALL LIGHT WITHIN REACH. BED IN LOW AND LOCKED POSITION.
[2017-11-14] VITALS (60 sets, daily range): BP systolic 97–145; BP diastolic 49–82
[2017-11-14] MEDS: IPRATROPIUM NEB FS 0.5 MG/2.5 ML AMPUL.NEB NEB SCH ×8 (00:12→22:46)
[2017-11-14] MEDS: ALBUTEROL HALF STRENGTH 1.25 MG/3 ML VIAL.NEB NEB SCH ×8 (00:12→22:46)
[2017-11-14] MEDS: BLOOD SUGAR DIAGNOSTIC 1 EACH STRIP IN SCH ×6 (00:23→21:48)
[2017-11-14] MEDS: PROPOFOL 100 ML IV PRN ×5 (00:24→21:08)
[2017-11-14] MEDS: INSULIN REGULAR, HUMAN 100 UNIT/ML 3 ML VIAL SQ PRN ×6 (00:38→21:53)
[2017-11-14] MEDS: INSULIN GLARGINE, 100 UNIT/ML CARTRIDGE SQ SCH ×2 (02:28→13:14)
[2017-11-14] MEDS: PIPERACILLIN /TAZOBACTAM 3.375 G in IV D5W 50 ML IV SCH ×4 (02:29→21:07)
[2017-11-14] MEDS: VANCOMYCIN 0.75 GM in IV NS 0.9% 250 ML IV SCH ×2 (04:08→17:57)
[2017-11-14 05:24] LABS: CALCIUM, SERUM 9.2 mg/dL (8.5-10.1); CARBON DIOXIDE 23 mmol/L (21-32); CHLORIDE 103 mmol/L (98-107); CREATININE 1.3 mg/dL (0.6-1.3); GLUCOSE 202 mg/dL (74-106); POTASSIUM 3.9 mmol/L (3.5-5.1); SODIUM SERUM 138 mmol/L (136-145); UREA NITROGEN, BLOOD 25 mg/dL (7-18)
--- NOTE | 2017-11-14 07:45 | NUR ---
INITIAL HAND CANDY CUTTER NOTE RCVD PT SEDATED, ABLE TO WAKE UP TO NAME/LIGHT TOUCH. BILATERAL SOFT WRIST RESTRAINTS IN PLACE. CIRCULATION CHECKS PERFORMED. INTUBATED ETT 7.5 23 AT LIP TOLERATING ORDERED VENT SETTINGS. SR WITH 1ST AVB ON TELE. NG-TUBE CLAMPED PLACEMENT VERIFIED BY AUSCULTATION/ASPIRATION, YELLOW SEE THROUGH GASTRIC CONTENT OBSERVED IN TUBING UPON ASPIRATING. CONNELLY TO GRAVITY DRAINING YELLOW URINE. IV SITES C/D/I/PATENT. NO S/O INFILTRATION/PHLEBITIS OBSERVED UPON FLUSHING. WILL CONTINUE TO MONITOR PT FOR SAFETY AND COMFORT. BED IN LOW AND LOCKED POSITION.
[2017-11-14] MEDS: methylPREDNISolone SOD SUCC 125 MG/2ML VIAL IV SCH ×2 (08:07→17:57)
[2017-11-14] MEDS: ATORVASTATIN 40 MG TABLET PO SCH (08:07)
[2017-11-14] MEDS: CLOPIDOGREL BISULFATE 75 MG TABLET PO SCH (08:10)
[2017-11-14] MEDS: ASPIRIN 81 MG TAB.CHEW PO SCH (08:10)
[2017-11-14] MEDS: PANTOPRAZOLE 40 MG VIAL IV SCH (09:43)
--- NOTE | 2017-11-14 09:45 | NUR ---
PLANNING CONSULTANT NOTE HENOK, SCENIC DESIGNER FOR DR. BEAR GIVEN UPDATE ON PT'S CONDITION. PT TO UNDERGO BRONCHOSCOPY THIS AFTERNOON.
[2017-11-14] MEDS ORDERED: LORAZEPAM INJ 2 MG/ML VIAL IV STA (15:19)
[2017-11-14] MEDS ORDERED: MORPHINE SULFATE INJ 4 MG/ML DISP.SYRIN SQ STA (15:19)
[2017-11-14] MEDS ORDERED: MORPHINE SULFATE INJ 10 MG/ML DISP.SYRIN ONE (15:21)
[2017-11-14] MEDS ORDERED: LIDOCAINE 2% JEL 5 ML TUBE MC ONE (15:30)
--- NOTE | 2017-11-14 16:17 | NUR ---
MEDICATION SENIOR VICE PRESIDENT AND CHIEF INFORMATION OFFICER NOTE ASA AND PLAVIX HELD THIS AM DUE TO BRONCHOSCOPY PER DR. CHO'S RECOMMENDATION. DURING BRONCHOSCOPY ATIVAN 2 MG WAS GIVEN ORDERED BY DR. LINDSEY. THE REMAINDER DOSE OF ATIVAN 4 MG AND MORPHINE 10 MG WAS RETURNED TO [facility] WITH CRN. SHELIA
[2017-11-14 16:49] LABS: ABG BASE EXCESS -1.8 mmol/L; ABG OXYGEN SATURATION 99.4 % (92.0-98.5); ABG PH 7.409 (7.350-7.450); ABG PO2 556.3 mmHg (75.0-100.0); AaDO2 120.7 mmHg; COHb 0.3 % (0.5-1.5); MetHb 0.5 % (0.0-1.5); O2Hb 98.6 % (94.0-97.0); PEEP,BG 5 cm H2O; SITE, ABG Right Radial; VT, ABG 500 mL
--- NOTE | 2017-11-14 17:07 | NUR ---
RT NOTE: PATIENT RECEIVED ORALLY INTUBATED WITH 7.5 ETT TAPED AT 23 CM MID LIP LINE. ETT MOVED FROM LEFT TO RIGHT OF MOUTH VIA ANCHOR FAST. BILATERAL B/S NOTED. SUCTIONED AND LAVAGED MODERATE-LARGE AMOUNT OF THICK RUGGIERO SECRETIONS. VENT PLUGGED INTO RED OUTLET. AMBU BAG AT [facility]. @[id number] SET UP EQUIPMENT AND ASSISTED WITH BRONCHOSCOPY. @0404- SENT SLIDES AND SAMPLE TO PATHOLOGY/CYTOLOGY. HANDED TO ELLA IN PATHOLOGY DEPARTMENT.
--- NOTE | 2017-11-14 17:38 | NUR ---
RT NOTE: RESP TREATMENT GIVEN LATE DUE BRONCHOSCOPY.
--- NOTE | 2017-11-14 18:51 | NUR ---
NURSE ADMINISTRATOR NOTE PT REMAINS INTUBATED, SEDATED ETT 7.5 23 AT LIP TOLERATING ORDERED VENT SETTINGS WELL. BILATERAL SOFT WRIST RESTRAINTS IN PLACE. CIRCULATION CHECKS DONE. SR WITH 1 DEGREE AVB, AND OCCASIONAL PVCs, NG TUBE PLACEMENT VERIFIED BY AUSCULTATION/ASPIRATION. YELLOW GASTRIC RESIDUAL OBSERVED IN TUBING. CONNELLY TO GRAVITY DRAINING YELLOW URINE. IV SITES C/D/I/PATENT. NO S/O INFILTRATION/PHLEBITIS OBSERVED UPON FLUSHING. PT'S CARE WILL BE ENDORSED TO IMAGING ENGINEER RN FOR CONTINUITY OF CARE. BED IN LOW AND LOCKED POSITION.
[2017-11-15] VITALS (30 sets, daily range): BP systolic 92–151; BP diastolic 48–96
[2017-11-15] MEDS: BLOOD SUGAR DIAGNOSTIC 1 EACH STRIP IN SCH ×6 (00:22→22:13)
[2017-11-15] MEDS: INSULIN REGULAR, HUMAN 100 UNIT/ML 3 ML VIAL SQ PRN ×5 (01:02→22:19)
[2017-11-15] MEDS: INSULIN GLARGINE, 100 UNIT/ML CARTRIDGE SQ SCH ×2 (01:09→14:35)
[2017-11-15] MEDS: ALBUTEROL HALF STRENGTH 1.25 MG/3 ML VIAL.NEB NEB SCH ×6 (02:39→23:47)
[2017-11-15] MEDS: IPRATROPIUM NEB FS 0.5 MG/2.5 ML AMPUL.NEB NEB SCH ×6 (02:40→23:47)
[2017-11-15] MEDS: PIPERACILLIN /TAZOBACTAM 3.375 G in IV D5W 50 ML IV SCH ×4 (03:30→20:32)
[2017-11-15] MEDS: PROPOFOL 100 ML IV PRN (03:37)
[2017-11-15 04:53] LABS: HEMATOCRIT 41 % (39-51); HEMOGLOBIN 13.8 g/dL (13.5-17.5); LYMPHOCYTES # (AUTO) 0.6 /CMM (0.8-4.8); LYMPHOCYTES % (AUTO) 7.8 % (20.0-44.0); MEAN CORPUSCULAR HEMOGLOBIN 30 PG (26.0-33.0); MEAN CORPUSCULAR HGB CONC 34 g/dl (31.0-36.0); MEAN CORPUSCULAR VOLUME 89 fL (80-96); MONOCYTES # (AUTO) 0.6 /CMM (0.1-1.30); MONOCYTES % (AUTO) 7.5 % (2.0-12.0); NEUTROPHILS # (AUTO) 6.6 /CMM (1.8-8.9); NEUTROPHILS % (AUTO) 84.7 % (43.0-81.0); PLATELET COUNT (AUTO) 210 /CMM (150-450); RDW COEFFICIENT OF VARIATION 13.4 (11.5-15.0); RED BLOOD CELL COUNT(AUTO) 4.57 MIL/uL (4.5-6.0); WHITE BLOOD COUNT (AUTO) 7.8 K/uL (4.3-11.0)
[2017-11-15] MEDS: VANCOMYCIN 0.75 GM in IV NS 0.9% 250 ML IV SCH ×2 (04:53→16:50)
[2017-11-15 05:16] LABS: CALCIUM, SERUM 9.2 mg/dL (8.5-10.1); CARBON DIOXIDE 25 mmol/L (21-32); CHLORIDE 103 mmol/L (98-107); CREATININE 1.3 mg/dL (0.6-1.3); GLUCOSE 205 mg/dL (74-106); MAGNESIUM 1.8 mg/dL (1.8-2.4); PHOSPHORUS 4.1 mg/dL (2.5-4.9); POTASSIUM 4.2 mmol/L (3.5-5.1); SODIUM SERUM 137 mmol/L (136-145); UREA NITROGEN, BLOOD 29 mg/dL (7-18)
--- NOTE | 2017-11-15 08:00 | NUR ---
RT PATIENT RECEIVED ORALLY INTUBATED WITH 7.5 ETT MARKED AT 23 CM MID LIP LINE. ETT SECURE WITH ANCHOR FAST. BILATERAL B/S NOTED. SUCTIONED AND LAVAGED MODERATE-LARGE AMOUNT OF THICK RUGGIERO SECRETIONS. VENT ALARMS CHECKED AND AUDIBLE. VENT PLUGGED INTO RED OUTLET. AMBU BAG AT [facility].
--- NOTE | 2017-11-15 08:00 | NUR ---
CLAY GRINDER NOTE PT REMAINS INTUBATED, SEDATED ETT 7.5 23 AT LIP TOLERATING ORDERED VENT SETTINGS WELL. BSR WITH 1 DEGREE AVB, AND OCCASIONAL PVCs, NG TUBE PLACEMENT VERIFIED BY AUSCULTATION/ASPIRATION. YELLOW GASTRIC RESIDUAL OBSERVED IN TUBING. CONNELLY TO GRAVITY DRAINING YELLOW URINE. IV SITES C/D/I/PATENT. NO S/O INFILTRATION/PHLEBITIS OBSERVED UPON FLUSHING. PT'S CARE . BED IN LOW AND LOCKED POSITION.
[2017-11-15] MEDS ORDERED: DC PROPOFOL WHEN EXTUBATED XX PRN (09:00)
[2017-11-15] MEDS: ATORVASTATIN 40 MG TABLET PO SCH (09:12)
[2017-11-15] MEDS: methylPREDNISolone SOD SUCC 125 MG/2ML VIAL IV SCH ×2 (09:12→16:50)
[2017-11-15] MEDS: CLOPIDOGREL BISULFATE 75 MG TABLET PO SCH (09:12)
[2017-11-15] MEDS: ASPIRIN 81 MG TAB.CHEW PO SCH (09:13)
--- NOTE | 2017-11-15 09:30 | NUR ---
WOOD CRAFTSMAN NOTE PER DR LINDSEY STOPPED PROPOFOL AND RT AT BEDSIDE, PLACED ON VENT ON SMIV MODE 4 40% PS 12 , HR 79 SAT 100% BP 133/66, WILL CONT TO MONITOR CLOSELY . PATENT ALERT , AWAKE ABLE TO MAKE EYE CONTACT ,ABLE TO FALLOW COMMAND , ABLE TO SNEEZE BOTH HANDS AND MOVE RT LEG NEURO LEONARDO KHAN FOR DR BEAR AT BEDSIDE ,WILL CONT TO MONITOR CLOSELY Addendum: 11/15/17 at 1535 by ZIGGY HOSKINS RN ABLE TO SQUEEZE BOTH HANDS
[2017-11-15] MEDS: PANTOPRAZOLE 40 MG VIAL IV SCH (10:20)
--- NOTE | 2017-11-15 10:29 | NUR ---
CREDIT PORTFOLIO MANAGER NOTE ABG DONE ORDERED BY RT ,WILL MONITOR CLOSELY FREQUENTLY ORAL SUCTION DONE, WILL MONITOR CLOSELY
--- NOTE | 2017-11-15 10:30 | NUR ---
TAPE STRINGER NOTE RT AT BEDSIDE EXTUBATION DONE ORDERED BY DR LINDSEY . ALL NEEDS ATTENDED NO SOB NOTED HR 88 SAT 100%
[2017-11-15 10:32] LABS: ABG BASE EXCESS 0.9 mmol/L; ABG OXYGEN SATURATION 98.6 % (92.0-98.5); ABG PCO2 39.1 mmHg (35.0-45.0); ABG PH 7.427 (7.350-7.450); ABG PO2 162.6 mmHg (75.0-100.0); AaDO2 77.6 mmHg; COHb 0.2 % (0.5-1.5); MetHb 0.4 % (0.0-1.5); PEEP,BG 5 cm H2O; SITE, ABG Left Radial; VENT MODE, BG SIMV/PS12; VT, ABG 500 mL
--- NOTE | 2017-11-15 11:09 | NUR ---
FUR STRETCHER NOTE ST AT BEDSIDE STATED THAT WILL CHECK PATENT TOMORROW AND WILL DO FOR DIET EVAL
--- NOTE | 2017-11-15 13:04 | NUR ---
arboriculture teacher note patient pooled n gtube incidentally , unable to reinsert new one at this time patient strongly refused
--- NOTE | 2017-11-15 13:04 | NUR ---
inspector agricultural commodities note order swallow with with st , stated will come tomorrow
[2017-11-15] MEDS ORDERED: DEXTROSE 50%-WATER 50 ML DISP.SYRIN IV PRN (15:00)
--- NOTE | 2017-11-15 15:01 | NUR ---
INVERTEBRATE PALEONTOLOGIST NOTE ST AT BEDSIDE SWALLOW EVAL DONE, ASLO UNABLE TO REMOVE RESTRAIN STILL TRYING TO REMOVE ALL LINES ,WILL F\U
--- NOTE | 2017-11-15 15:20 | NUR ---
COLLEGE DEAN NOTE C\O RT HIP PAIN 6\10 CALLED TO [facility] BENAVIDES TO ORDER X RAY , WILL F\U Addendum: 11/15/17 at 1546 by ZIGGY HOSKINS RN ON BREATHING TX BY RT, FAMILY AT BEDSIDE
--- NOTE | 2017-11-15 18:11 | NUR ---
interior horticulturist note fed patient ate 50 % of diet , keep clean dry , all needs attended ,son at bedside
--- NOTE | 2017-11-15 19:30 | NUR ---
DIESEL POWERPLANT MECHANIC: RECEIVED S/P EXTUBATED PT, ALERT AND ORIENTED X 2-3. RESTLESS AND WT EPISODES OF TRYING TO REMOVE TUBINGS. ON R/A WT NO ACUTE DISTRESS, 02 SAT ABOVE 96%. NO C/O PAIN. BILAT. SOFT WRIST RESTRAINTS IN PLACE, SKIN AND CIRCULATION WNL. SR-ST ON PLANT MAINTENANCE MANAGER WT OCCASIONAL PVCs. AFEBRILE. KAMERON MIDLINE IN PLACE TKO WT NO S/S OF INFILTRATION. F/C PATENT AND INTACT DRAINING CLEAR YELLOW URINE TO GRAVITY. SAFETY PRECAUTION NOTED AT ALL TIMES. HOB AT 35 DEGREES. WILL CONTINUE TO MONITOR.
--- NOTE | 2017-11-15 21:35 | NUR ---
SENIOR PHARMACY TECHNICIAN: PT REMAINS TO BE VERY RESTLESS AND KEEPS MOVING AROUND IN BED. KCI MATTRESS DISCONTINUED OF THIS TIME FOR SAFETY PRECAUTION.
[2017-11-15] MEDS ORDERED: IV NS 0.9% 250 ML IV PRN (22:00)
[2017-11-16] VITALS (15 sets, daily range): BP systolic 106–159; BP diastolic 60–106
[2017-11-16] MEDS: INSULIN GLARGINE, 100 UNIT/ML CARTRIDGE SQ SCH ×2 (02:54→15:02)
[2017-11-16] MEDS: PIPERACILLIN /TAZOBACTAM 3.375 G in IV D5W 50 ML IV SCH ×3 (02:55→14:51)
[2017-11-16] MEDS: IPRATROPIUM NEB FS 0.5 MG/2.5 ML AMPUL.NEB NEB SCH ×6 (03:02→23:24)
[2017-11-16] MEDS: ALBUTEROL HALF STRENGTH 1.25 MG/3 ML VIAL.NEB NEB SCH ×6 (03:02→23:24)
[2017-11-16] MEDS: VANCOMYCIN 0.75 GM in IV NS 0.9% 250 ML IV SCH (04:30)
[2017-11-16 05:22] LABS: HEMATOCRIT 44 % (39-51); HEMOGLOBIN 14.7 g/dL (13.5-17.5); LYMPHOCYTES # (AUTO) 0.6 /CMM (0.8-4.8); LYMPHOCYTES % (AUTO) 6.4 % (20.0-44.0); MEAN CORPUSCULAR HEMOGLOBIN 30 PG (26.0-33.0); MEAN CORPUSCULAR HGB CONC 34 g/dl (31.0-36.0); MEAN CORPUSCULAR VOLUME 89 fL (80-96); MONOCYTES # (AUTO) 0.8 /CMM (0.1-1.30); MONOCYTES % (AUTO) 9.1 % (2.0-12.0); NEUTROPHILS # (AUTO) 7.6 /CMM (1.8-8.9); NEUTROPHILS % (AUTO) 84.5 % (43.0-81.0); PLATELET COUNT (AUTO) 202 /CMM (150-450); RDW COEFFICIENT OF VARIATION 13.5 (11.5-15.0); RED BLOOD CELL COUNT(AUTO) 4.88 MIL/uL (4.5-6.0); WHITE BLOOD COUNT (AUTO) 8.9 K/uL (4.3-11.0)
[2017-11-16 05:43] LABS: CALCIUM, SERUM 9.4 mg/dL (8.5-10.1); CARBON DIOXIDE 27 mmol/L (21-32); CHLORIDE 102 mmol/L (98-107); CREATININE 1.2 mg/dL (0.6-1.3); GLUCOSE 188 mg/dL (74-106); MAGNESIUM 1.7 mg/dL (1.8-2.4); PHOSPHORUS 2.4 mg/dL (2.5-4.9); POTASSIUM 3.3 mmol/L (3.5-5.1); SODIUM SERUM 139 mmol/L (136-145); UREA NITROGEN, BLOOD 26 mg/dL (7-18)
--- NOTE | 2017-11-16 06:35 | NUR ---
CREDIT AUTHORIZER: REMAINED MOSTLY AWAKE THROUGHOUT THE SHIFT. VERBALLY RESPONSIVE. RESTLESS AND WT EPISODES OF TRYING TO REMOVE TUBINGS. BILAT. SOFT WRIST IN PLACE WT SKIN AND CIRCULATION WNL. VS WITHIN HIS BASELINE. SAFETY PRECAUTION NOTED AT ALL TIMES.
[2017-11-16] MEDS: BLOOD SUGAR DIAGNOSTIC 1 EACH STRIP IN SCH ×4 (08:27→21:52)
[2017-11-16] MEDS: INSULIN REGULAR, HUMAN 100 UNIT/ML 3 ML VIAL SQ PRN ×4 (08:37→21:59)
[2017-11-16] MEDS: ATORVASTATIN 40 MG TABLET PO SCH (08:40)
[2017-11-16] MEDS: ASPIRIN 81 MG TAB.CHEW PO SCH (08:40)
[2017-11-16] MEDS: CLOPIDOGREL BISULFATE 75 MG TABLET PO SCH (08:40)
[2017-11-16] MEDS: PANTOPRAZOLE 40 MG VIAL IV SCH (08:40)
[2017-11-16] MEDS: methylPREDNISolone SOD SUCC 125 MG/2ML VIAL IV SCH ×2 (08:40→18:21)
[2017-11-16] MEDS ORDERED: POTASSIUM CHLORIDE 20 MEQ TAB.PRT.SR PO SCH (09:00)
[2017-11-16] MEDS: Magnesium 1GM/D5W 100ML PREMIX 100 ML IV SCH ×2 (10:19→12:06)
[2017-11-16] MEDS: NEUTRA PHOS 1 POWD.PACKET PO SCH ×2 (10:19→18:21)
[2017-11-16] MEDS ORDERED: POTASSIUM CHLORIDE 20 MEQ TAB.PRT.SR PO ONE (10:48)
--- NOTE | 2017-11-16 11:40 | NUR ---
RN NOTES PT TRANSFERRED TO TELE FLOOR RM [id number]. NO ACUTE CHANGE IN CONDITION NOTED, ALL MEDS GIVEN. NEEDS ATTENDED.
--- NOTE | 2017-11-16 11:43 | NUR ---
MS RN NOTES RECEIVED PT FROM ICU NURSE IN STABLE CONDITION. PT IS A/O X2 WITH PERIODS OF CONFUSION. NO SOB OR SIGNS OF DISTRESS NOTED. BREATHING IS EVEN AND UNLABORED. PT IS ON 4L VIA NC AND SATING WELL. VITAL STABLE AT THIS TIME. IV NOTED TO BE PATENT AND INTACT. PT IS CURRENTLY RECEIVING MAGNESIUM INFUSION. WILL ADMINISTER SECOND BAG ONCE INFUSION IS COMPLETE. BILATERAL WRIST RESTRAINTS NOTED PT IS SAID TO BE PULLING CONNELLY CATHETER AND OTHER INVASIVE LINES. BED IN LOW LOCKED POSITION, SIDE RAILS UP X3, CALL LIGHT. WILL CONTINUE TO MONITOR
[2017-11-16] MEDS: LACTOBACILLUS RHAMNOSUS GG 1 EACH CAP.SPRINK PO SCH (18:21)
--- NOTE | 2017-11-16 18:43 | NUR ---
MS RN NOTES VARIOUS ATTEMPTS MADE BY MYSELF AND DR. URIOSTEGUI TO CONTACT PT'S DAUGHTER TO GET CONSENT FOR CT WITH CONTRAST. CALL NOT RETURNED AT THIS TIME. [facility]
--- NOTE | 2017-11-16 19:07 | NUR ---
MS RN CLOSING NOTES PT REMAINS IN STABLE CONDITION. ALL NEEDS MET DURING SHIFT AND ORDERS CARRIED OUT ACCORDINGLY ALL DUE MEDS GIVEN WITH THE EXCEPTION OF [facility] WHICH PHARMACY IS SET TO DELIVER. CATHETER AND SKIN CARE RENDERED. SAFETY MEASURES REMAIN IN PLACE. WILL ENDORSE TO NIGHTSHIFT NURSE FOR ERICA
--- NOTE | 2017-11-16 19:30 | NUR ---
MS RN OPENING NOTES: PATIENT IN BED, AOX1, SPEAKS MOSLY BAHAMIAN BUT ABLE TO RESPOND IN SIMPLE ITALIAN, ON O2 AT 3 LPM VIA NC, BREATHING EVEN AND UNLABORED. BREATH SOUNDS CLEAR TO AUSCULTATION. PATIETN APPEARS RESTLESS, ON EMERSON SOFT WRIST RESTRAINTS, MONITORED FOR ANY SIGNS OF SKIN BREAKDOWN OVER WRISTS, NON NOTED. KAMERON MIDLINE INTACT AND PATENT TO FLUSH. CONNELLY CATHETER IN PLACE DRAINING CLEAR YELLOW URINE. PROVIDED FOR COMFORT AND SAFETY. BED IN LOWEST AND LOCKED POSITION, SIDERAILS UP X 3. WILL CONT TO MONITOR.
--- NOTE | 2017-11-16 19:44 | NUR ---
MS RN NOTES PHARMACY CALLED IN REGARDS TO [facility], PER PHARMACIST KELLY "THE MEDICATION IS NOT READY, JUST ENDORSE TO NIGHTSHIFT". NIGHTSHIFT NURSE MADE AWARE
[2017-11-16] MEDS: ACETYLCYSTEINE 10% 3,000 MG/30 ML VIAL PO SCH (20:39)
--- NOTE | 2017-11-16 21:00 | NUR ---
RN NOTES: SPOKE TO DR FOSTER BLUE MD ROLL WINDER, RE SERUM K: 3.3. ASKED IF REPLACEMENT NEEDS TO BE GIVEN. NNO BY .
[2017-11-16] MEDS: QUETIAPINE FUMARATE 25 MG TABLET PO SCH (21:52)
--- NOTE | 2017-11-16 22:00 | NUR ---
RN NOTES: BLOOD SUGAR CHECKED AT 275 MG/DL, ADMINISTERED 6 UNITS REGULAR INSULIN PER SCALE. LIGHT SNACK GIVEN.
[2017-11-17] MEDS: INSULIN GLARGINE, 100 UNIT/ML CARTRIDGE SQ SCH ×2 (02:18→15:02)
--- NOTE | 2017-11-17 02:19 | NUR ---
RN NOTES: PATIENT'S BLOOD SUGAR CHECKED AT 147 MG/DL, ADMINISTERED SCHEDULED LANTUS 10 UNITS THEN GAVE LIGHT SNACK.
[2017-11-17] MEDS: IPRATROPIUM NEB FS 0.5 MG/2.5 ML AMPUL.NEB NEB SCH ×6 (02:26→22:45)
[2017-11-17] MEDS: ALBUTEROL HALF STRENGTH 1.25 MG/3 ML VIAL.NEB NEB SCH ×6 (02:26→22:45)
[2017-11-17] MEDS: BLOOD SUGAR DIAGNOSTIC 1 EACH STRIP IN SCH ×4 (06:35→21:57)
[2017-11-17] MEDS: INSULIN REGULAR, HUMAN 100 UNIT/ML 3 ML VIAL SQ PRN ×4 (06:36→21:59)
--- NOTE | 2017-11-17 06:45 | NUR ---
MS RN CLOSING NOTES: PATIENT IN BED, AOX1, MOSTLY COMORAN SPEAKING, BUT WITH LIMITED RESPONSE IN BAHAM[place]. NOTED TO HAVE PERIODS OF CONFUSION THROUGH NIGHT, WAS RESTLESS, BUT WHEN SPOKEN TO, ALWAYS REPLIES "OK" OR "YES" IN APPARENT AGREEMENT. KAMERON MIDLINE INTACT AND PATENT TO FLUSH. CONNELLY CATHETER IN PLACE DRAINING CLEAR YELLOW URINE. AM BLOOD SUGAR CHECKED AT 139 MG/DL, ADMINISTERED 2 UNITS REGULAR INSULIN PER SCALE. DUE MEDS GIVEN. PROVIDED FOR COMFORT AND SAFETY. BED IN LOWEST AND LOCKED POSITION, SIDERAILS UP X 3, BED ALARMS ON. WITH EMERSON SOFT WRIST RESTRAINTS. WILL ENDORSE TO AM RN FOR ERICA.
--- NOTE | 2017-11-17 07:20 | NUR ---
RN NOTES: MADE 2 ATTEMPTS TO CALL DAUGHTER, DAI BOLIVAR, LEFT MESSAGE TO [employer] RE CONSENT FOR CT CHEST, ABDOMEN AND PELVIS WITH CONTRAST. ENDORSED TO AM RNYULIET.
[2017-11-17 07:46] LABS: HEMATOCRIT 48 % (39-51); HEMOGLOBIN 16.4 g/dL (13.5-17.5); LYMPHOCYTES # (AUTO) 1.2 /CMM (0.8-4.8); LYMPHOCYTES % (AUTO) 10.3 % (20.0-44.0); MEAN CORPUSCULAR HEMOGLOBIN 30 PG (26.0-33.0); MEAN CORPUSCULAR HGB CONC 34 g/dl (31.0-36.0); MEAN CORPUSCULAR VOLUME 89 fL (80-96); MONOCYTES # (AUTO) 1.1 /CMM (0.1-1.30); MONOCYTES % (AUTO) 9.8 % (2.0-12.0); NEUTROPHILS % (AUTO) 79.9 % (43.0-81.0); PLATELET COUNT (AUTO) 223 /CMM (150-450); RDW COEFFICIENT OF VARIATION 13.1 (11.5-15.0); RED BLOOD CELL COUNT(AUTO) 5.44 MIL/uL (4.5-6.0); WHITE BLOOD COUNT (AUTO) 11.3 K/uL (4.3-11.0)
--- NOTE | 2017-11-17 07:52 | NUR ---
MS RN: INITIAL NOTE RECEIVED PT A/OX1-2. ON BUE RESTRAINTS. ORDERS STILL ACTIVE. SLIGHT RESTLESSNESS NOTED. NO PAIN NOTED. NO SOB NOTED. CONNELLY CATH IN PLACE AND DRAINING. TURNED AND REPOSITIONED ORDERED AND NEEDED. KAMERON MIDLINE IN PLACE. NO IV FLUIDS RUNNING. SITE CLEAR AND PATENT. NO REDNESS OR BLEEDING NOTED. RESTING COMFORTABLY IN BED. CALL LIGHT WITHIN REACH.
[2017-11-17 08:00] VITALS: BP 154/74
[2017-11-17 08:06] LABS: CARBON DIOXIDE 29 mmol/L (21-32); CHLORIDE 104 mmol/L (98-107); CREATININE 1.1 mg/dL (0.6-1.3); GLUCOSE 124 mg/dL (74-106); PHOSPHORUS 2.7 mg/dL (2.5-4.9); POTASSIUM 3.4 mmol/L (3.5-5.1); SODIUM SERUM 142 mmol/L (136-145); UREA NITROGEN, BLOOD 29 mg/dL (7-18)
[2017-11-17] MEDS: LACTOBACILLUS RHAMNOSUS GG 1 EACH CAP.SPRINK PO SCH ×2 (08:49→17:09)
[2017-11-17] MEDS: ASPIRIN 81 MG TAB.CHEW PO SCH (08:49)
[2017-11-17] MEDS: CLOPIDOGREL BISULFATE 75 MG TABLET PO SCH (08:49)
[2017-11-17] MEDS: PANTOPRAZOLE 40 MG TABLET.DR PO SCH (08:49)
[2017-11-17] MEDS: ATORVASTATIN 40 MG TABLET PO SCH (08:49)
[2017-11-17] MEDS: methylPREDNISolone SOD SUCC 125 MG/2ML VIAL IV SCH ×2 (08:49→17:09)
[2017-11-17] MEDS: ACETYLCYSTEINE 10% 3,000 MG/30 ML VIAL PO SCH ×2 (09:00→17:09)
[2017-11-17] MEDS ORDERED: POTASSIUM CHLORIDE 20 MEQ TAB.PRT.SR PO SCH (10:30)
--- NOTE | 2017-11-17 10:57 | NUR ---
AWAITING CONSENT FOR COMPUTED TOMOGRAPHY CHEST ABDOMEN PELVIS WITH CONTRAST. RN WILL CALL BACK WHEN READY.
--- NOTE | 2017-11-17 15:19 | NUR ---
DUE TO ALTERED MENTAL STATUS AND RESTRAINTS PT IS UNABLE TO BE TAKEN TO RADIOLOGY FOR CT OF ABD AND PELVIS WITH CONTRAST. DAUGHTER TIMOTHY SIGHED CONSENT AND IS PLACED IN CHART. MD URIOSTEGUI AWARE OF SITUATION. TO CONSULT NEURO. FAMILY AWARE.
[2017-11-17 16:00] VITALS: BP 137/78
--- NOTE | 2017-11-17 16:51 | NUR ---
PER RESEARCH PHYSIOLOGIST FAWN VERMA. TO CANCEL CT FOR TOMORROW. PT CAN DO CT OUTPATIENT
[2017-11-17] MEDS: NICOTINE PATCH (21MG) 21 MG PATCH.TD24 TD SCH (17:09)
[2017-11-17 18:06] VITALS: BP 137/78
--- NOTE | 2017-11-17 18:20 | NUR ---
MS RN: CLOSING NOTE PT TOOK ALL MEDICATIONS ON TIME. NO ADVERSE REACTIONS NOTED. NO SOB NOTED. NO PAIN NOTED. ON SOFT RESTRAINTS OF BUE. TURNED AND REPOSITIONED Q 2HOURS AND NEEDED. OTHERWISE INDEPENDENT WITH BED MOBILITY. CONNELLY CATH IN PLACE AND DRAINING. OUTPUT 600ML. WOUND CARE DONE. LEFT BELOW THE KNEE AMPUTATION. PT TRIED TO USE PROSTHETICS TO GET PT UP. PT CONFUSED AND UNABLE TO STAND. INSULIN GIVEN PER SLIDING SCALE AND ORDER. R UA MIDLINE #18 HL. NO REDNESS OR BLEEDING NOTED. BED ALARM ON. RESTING COMFORTABLY IN BED. CALL LIGHT WITHIN REACH.
--- NOTE | 2017-11-17 19:15 | NUR ---
MS/RN NOTES RECEIVED PT. LYING IN BED. PT. IS AWAKE, ALERT AND ORIENTED X1-2. BREATHING EVEN AND UNLABORED ON ROOM AIR. NO SOB, RESPIRATORY DISTRESS OR COMPLAINTS OF PAIN NOTED AT THIS TIME. PT. WITH RIGHT UPPER ARM MIDLINE PRESENT, PATENT AND INTACT. PT. WITH CONNELLY CATHETER PRESENT, PATENT AND INTACT. PT. WITH BILATERAL SOFT WRIST RESTRAINTS PRESENT AND INTACT. PT. CIRCULATION CHECK PERFORMED. BED LOCKED AND IN LOWEST POSITION, SIDE RAILS UP X3, BED ALARM ON, WILL CONTINUE TO MONITOR.
[2017-11-17 20:00] VITALS: BP 128/87
[2017-11-17] MEDS: QUETIAPINE FUMARATE 25 MG TABLET PO SCH (21:57)
--- NOTE | 2017-11-18 02:45 | NUR ---
MS/RN NOTES NOTIFIED [facility] LEAD BI DEVELOPER DR. HUTCHISON THAT PT. HAS BILATERAL SOFT WRIST RESTRAINTS AND CONTINUES TO ATTEMPT PULLING ON HIS CONNELLY CATHETER AND TRYING TO GET OUT OF THE BED. OBTAINED AN ORDER FOR 1:1 SITTER. 1:1 SITTER UNAVAILABLE AT THIS TIME. WILL CONTINUE PT. WITH BILATERAL SOFT WRIST RESTRAINTS UNTIL SITTER IS AVAILABLE. WILL CONTINUE TO FREQUENTLY MONITOR PATIENT.
[2017-11-18] MEDS: INSULIN GLARGINE, 100 UNIT/ML CARTRIDGE SQ SCH ×2 (02:54→14:54)
[2017-11-18] MEDS: IPRATROPIUM NEB FS 0.5 MG/2.5 ML AMPUL.NEB NEB SCH ×6 (03:33→22:53)
[2017-11-18] MEDS: ALBUTEROL HALF STRENGTH 1.25 MG/3 ML VIAL.NEB NEB SCH ×6 (03:33→22:54)
--- NOTE | 2017-11-18 06:09 | NUR ---
MS/RN NOTES PT. IS LYING IN BED, AWAKE, ALERT AND ORIENTED X1-2. BREATHING EVEN AND UNLABORED ON ROOM AIR. NO SOB, RESPIRATORY DISTRESS OR COMPLAINTS OF PAIN NOTED AT THIS TIME. PT. WITH RIGHT UPPER ARM MIDLINE PRESENT, PATENT AND INTACT. PT. WITH CONNELLY CATHETER PRESENT, PATENT AND INTACT. PT. WITH BILATERAL SOFT WRIST RESTRAINTS PRESENT AND INTACT. PT. CIRCULATION CHECKS PERFORMED. ALL PT. NEEDS MET. PT. OFFLOADED, TURNED AND REPOSITIONED Q2H AND NEEDED. BED LOCKED AND IN LOWEST POSITION, SIDE RAILS UP X3, BED ALARM ON, WILL ENDORSE TO DAYSHIFT NURSE FOR CONTINUITY OF CARE.
[2017-11-18] MEDS: BLOOD SUGAR DIAGNOSTIC 1 EACH STRIP IN SCH ×4 (06:34→22:18)
[2017-11-18 07:17] LABS: BASOPHILS % (AUTO) 0.1 % (0.0-2.0); HEMATOCRIT 48 % (39-51); HEMOGLOBIN 16.4 g/dL (13.5-17.5); LYMPHOCYTES # (AUTO) 1.3 /CMM (0.8-4.8); LYMPHOCYTES % (AUTO) 9.1 % (20.0-44.0); MEAN CORPUSCULAR HEMOGLOBIN 30 PG (26.0-33.0); MEAN CORPUSCULAR HGB CONC 34 g/dl (31.0-36.0); MEAN CORPUSCULAR VOLUME 89 fL (80-96); MONOCYTES # (AUTO) 1.2 /CMM (0.1-1.30); MONOCYTES % (AUTO) 8.3 % (2.0-12.0); NEUTROPHILS # (AUTO) 11.6 /CMM (1.8-8.9); NEUTROPHILS % (AUTO) 82.5 % (43.0-81.0); PLATELET COUNT (AUTO) 232 /CMM (150-450); RDW COEFFICIENT OF VARIATION 13.2 (11.5-15.0); RED BLOOD CELL COUNT(AUTO) 5.41 MIL/uL (4.5-6.0)
[2017-11-18 07:39] LABS: CALCIUM, SERUM 10.2 mg/dL (8.5-10.1); CARBON DIOXIDE 26 mmol/L (21-32); CHLORIDE 102 mmol/L (98-107); CREATININE 1.1 mg/dL (0.6-1.3); GLUCOSE 145 mg/dL (74-106); PHOSPHORUS 2.6 mg/dL (2.5-4.9); POTASSIUM 3.4 mmol/L (3.5-5.1); SODIUM SERUM 139 mmol/L (136-145); UREA NITROGEN, BLOOD 34 mg/dL (7-18)
--- NOTE | 2017-11-18 07:59 | NUR ---
RN OPENING NOTES 1:1 SITTER AT BEDSIDE. RECEIVED PT. IN BED A&OX2, CONFUSED TO PLACE. BREATHING UNLABORED, AND EVENLY ON ROOM AIR. ACUTE MEDICAL BILATERAL RESTRAINTS WERE DISCONTINUED. NO S/S OF ACUTE DISTRESS. PT. HAS A RIGHT UPPER ARM MIDLINE SALINE LOCKED. CONNELLY CATHETER HAS 50 CC OF CLEAR, AND YELLOW URINE. BED IS IN LOWEST, AND LOCKED POSITION. 2 SIDE RAILS UP, AND CALL LIGHT IS WITHIN REACH. ALL NEEDS MET. WILL CONTINUE TO ASSESS AND MONITOR.
[2017-11-18 08:00] VITALS: BP 116/76
--- NOTE | 2017-11-18 09:00 | NUR ---
RN NOTES PT. HAS RED SACAL REDNESS, WITH PARTIAL SKIN LOSS. WOUND CARE PERFORMED. CLEANED SACRAL AREA WITH NORMAL SALINE, PAT DRY, AND COVERED WITH MEPILEX. APPLIED Z GAURD AROUND MEPILEX. PT. TOLERATED PROCEDURE WELL.
[2017-11-18] MEDS: PANTOPRAZOLE 40 MG TABLET.DR PO SCH (09:26)
[2017-11-18] MEDS: LACTOBACILLUS RHAMNOSUS GG 1 EACH CAP.SPRINK PO SCH ×2 (09:27→16:51)
[2017-11-18] MEDS: ACETYLCYSTEINE 10% 3,000 MG/30 ML VIAL PO SCH (09:27)
[2017-11-18] MEDS: methylPREDNISolone SOD SUCC 125 MG/2ML VIAL IV SCH ×2 (09:27→16:51)
[2017-11-18] MEDS: ATORVASTATIN 40 MG TABLET PO SCH (09:27)
[2017-11-18] MEDS: NICOTINE PATCH (21MG) 21 MG PATCH.TD24 TD SCH (09:27)
[2017-11-18] MEDS: ASPIRIN 81 MG TAB.CHEW PO SCH (09:27)
[2017-11-18] MEDS: CLOPIDOGREL BISULFATE 75 MG TABLET PO SCH (09:28)
[2017-11-18] MEDS: POTASSIUM CHLORIDE 20 MEQ POWDER PACKET PO SCH ×2 (10:57→12:00)
[2017-11-18] MEDS: INSULIN REGULAR, HUMAN 100 UNIT/ML 3 ML VIAL SQ PRN ×3 (12:11→22:28)
[2017-11-18] MEDS: SIMETHICONE 80 MG TAB.CHEW PO SCH ×3 (12:17→21:19)
[2017-11-18] MEDS: IV NS 0.9% 1,000 ML IV PRN (13:37)
--- NOTE | 2017-11-18 13:54 | NUR ---
RN NOTES REMOVED PT.'S CONNELLY CATHETER WITHOUT COMPLICATIONS. REMOVED 300 CC OR CLEAR, AND YELLOW URINE OUTPUT. PT. TOLERATED PROCEDURE WELL.
--- NOTE | 2017-11-18 15:10 | NUR ---
RN PT. HAD VOIDED APPROX. 400 CC OF CLEAR, AND YELLOW URINE INTO BEDPAN POST CONNELLY CATHETER REMOVAL.
--- NOTE | 2017-11-18 15:58 | NUR ---
RN NOTES TRANSFERRED ON A NEW ISOFLEX MATTRESS DUE TO PT. WOUND.
[2017-11-18 16:00] VITALS: BP 114/52
--- NOTE | 2017-11-18 18:16 | NUR ---
RN NOTES CT SCAN PREVIOUS CT ORDERS COULD NOT BE CARRIED OUT DUE TO PT. CONDITION. PT. WAS CONFUSED, AND UNABLE TO FOLLOW INSTRUCTIONS. RADIOLOGY RECOMMENDED TO HAVE PT. UNDER SOME SEDATION TO BE ABLE TO COMPLETE THE PROCEDURE, NOTIFIED DR. VERMA. PER DR. VERMA SEDATION ORDERS BEFORE PROCEDURE COULD NOT BE GIVEN DUE TO PT.'S RECENT EPISODES OF ALTERED MENTAL STATUS.
--- NOTE | 2017-11-18 19:30 | NUR ---
MS RN OPENING NOTES RECEIVED PT IN BED ALERT, AWAKE, VERBALLY RESPONSIVE ON RA, RESPIRATIONS EVEN, UNLABORED. NO S/SX OF PAIN OR DISCOMFORT NOTED. IV SITE KAMERON MIDLINE INTACT, PATENT. SITTER AT THE BEDSIDE. CALL LIGHT WITHIN REACH. BED LOCKED IN LOWEST POSITION. ATTENDED ALL NEEDS. WILL CONTINUE TO MONITOR ACCORDINGLY.
--- NOTE | 2017-11-18 19:30 | NUR ---
RN CLOSING NOTES 1:1 SITTER AT BEDSIDE. PT. IS IN BED A&OX3, HAS EPISODES OF CONFUSION. BREATHING UNLABORED, AND EVENLY ON ROOM AIR. NO S/S OF ACUTE DISTRESS. PT. HAS A RIGHT UPPER ARM MIDLINE WITH IV FLUIDS RUNNING AT 50 ML/HR. PT. HAS BEEN REQUESTING TO USE THE TOILET, AND HAS BEEN USING THE URINAL AT BEDSIDE. PT. WAS ASSISTED WITH TURNING AND REPOSITIONING EVERY 2 HOURS. BED IS IN LOWEST, AND LOCKED POSITION. 3 SIDE RAILS UP, AND CALL LIGHT IS WITHIN REACH. ALL NEEDS MET. WILL ENDORSE REPORT TO NURSE.
[2017-11-18] MEDS: QUETIAPINE FUMARATE 25 MG TABLET PO SCH (21:19)
[2017-11-18 22:00] VITALS: BP 123/69
--- NOTE | 2017-11-18 23:05 | NUR ---
MS RN NOTE PT COMBATIVE, AGGRESSIVE, HITTING STAFF, TRYING TO GET OUT OF BED,ORIENTED AND REDIRECTED, CONTINUES WITH AGGRESSIVE BEHAVIOR.DR FOSTER RODRIGEZ, AWAITING TO CALL BACK. PT IN BED, SITTER AT BEDSIDE, ATTENDED ALL NEEDS.WILL CONTINUE TO MONITOR.
--- NOTE | 2017-11-18 23:20 | NUR ---
MS RN NOTE DR HUTCHISON CALLED BACK NEW ORDER RECEIVED FOR ACUTE MEDICAL RESTRAINS, BILATERAL SOFT WRIST. ORDER NOTED AND CARRIED OUT.PT ALERT, AWAKE, NO APPARENT DISTRESS NOTED. WILL CONTINUE TO MONITOR ACCORDINGLY.
[2017-11-19] MEDS: SIMETHICONE 80 MG TAB.CHEW PO SCH ×6 (00:23→21:19)
[2017-11-19] MEDS: INSULIN GLARGINE, 100 UNIT/ML CARTRIDGE SQ SCH ×2 (02:35→14:21)
[2017-11-19] MEDS: IPRATROPIUM NEB FS 0.5 MG/2.5 ML AMPUL.NEB NEB SCH ×6 (03:30→23:58)
[2017-11-19] MEDS: ALBUTEROL HALF STRENGTH 1.25 MG/3 ML VIAL.NEB NEB SCH ×6 (03:30→23:58)
[2017-11-19] MEDS: BLOOD SUGAR DIAGNOSTIC 1 EACH STRIP IN SCH ×4 (06:21→21:34)
[2017-11-19] MEDS: IV NS 0.9% 1,000 ML IV PRN ×2 (06:21→15:11)
[2017-11-19] MEDS: INSULIN REGULAR, HUMAN 100 UNIT/ML 3 ML VIAL SQ PRN ×4 (06:23→21:37)
--- NOTE | 2017-11-19 06:44 | NUR ---
MS RN CLOSING NOTES PT IN BED, RESTING COMFORTABLY, ON ROOM AIR, RESPIRATIONS EVEN, UNLABORED, NO APPARENT DISTRESS NOTED. SITTER AT BEDSIDE, ON ACUTE MEDICAL RESTRAINS, MONITORED CLOSELY. IV SITE KAMERON MIDLINE INTACT, PATENT. NO S/SX OF PAIN OR DISCOMFORT NOTED. BED LOCKED IN LOWEST POSITION .KEPT CLEAN AND COMFORTABLE, ATTENDED ALL NEEDS. WILL CONTINUE TO MONITOR ACCORDINGLY.
[2017-11-19 06:54] LABS: CALCIUM, SERUM 9.2 mg/dL (8.5-10.1); CARBON DIOXIDE 30 mmol/L (21-32); CHLORIDE 104 mmol/L (98-107); CREATININE 1.3 mg/dL (0.6-1.3); GLUCOSE 173 mg/dL (74-106); PHOSPHORUS 6.7 mg/dL (2.5-4.9); POTASSIUM 3.9 mmol/L (3.5-5.1); SODIUM SERUM 140 mmol/L (136-145); UREA NITROGEN, BLOOD 36 mg/dL (7-18)
[2017-11-19 06:57] LABS: HEMATOCRIT 46 % (39-51); HEMOGLOBIN 15.4 g/dL (13.5-17.5); LYMPHOCYTES # (AUTO) 0.9 /CMM (0.8-4.8); LYMPHOCYTES % (AUTO) 8.7 % (20.0-44.0); MEAN CORPUSCULAR HEMOGLOBIN 30 PG (26.0-33.0); MEAN CORPUSCULAR HGB CONC 34 g/dl (31.0-36.0); MEAN CORPUSCULAR VOLUME 89 fL (80-96); MONOCYTES # (AUTO) 0.8 /CMM (0.1-1.30); NEUTROPHILS # (AUTO) 9.1 /CMM (1.8-8.9); NEUTROPHILS % (AUTO) 84.3 % (43.0-81.0); PLATELET COUNT (AUTO) 195 /CMM (150-450); RDW COEFFICIENT OF VARIATION 13.6 (11.5-15.0); RED BLOOD CELL COUNT(AUTO) 5.14 MIL/uL (4.5-6.0); WHITE BLOOD COUNT (AUTO) 10.8 K/uL (4.3-11.0)
--- NOTE | 2017-11-19 07:00 | NUR ---
RN OPENING NOTES 1:1 SITTER AT BEDSIDE. RECEIVED PT. IN BED A&OX2-3, CONFUSED. PT. IS ON A NEW KCI MATTRESS. BREATHING IS UNLABORED, AND EVEN ON ROOM AIR. PT. HAD BILATERAL SOFT WRIST RESTRAINTS AT NIGHT DUE TO PT. BEHAVING COMBATIVE. ACUTE MEDICAL BILATERAL RESTRAINTS WERE REMOVED THIS MORNING. NO S/S OF ACUTE DISTRESS. PT. HAS A RIGHT UPPER ARM MIDLINE WITH IV FLUIDS RUNNING AT 50 ML/HR. A URINAL IS AT BEDSIDE. BED IS IN LOWEST, AND LOCKED POSITION. 2 SIDE RAILS UP, AND CALL LIGHT IS WITHIN REACH. ALL NEEDS MET. WILL CONTINUE TO ASSESS AND MONITOR.
[2017-11-19 08:00] VITALS: BP 125/53
[2017-11-19] MEDS: ASPIRIN 81 MG TAB.CHEW PO SCH (08:55)
[2017-11-19] MEDS: CLOPIDOGREL BISULFATE 75 MG TABLET PO SCH (08:55)
[2017-11-19] MEDS: LACTOBACILLUS RHAMNOSUS GG 1 EACH CAP.SPRINK PO SCH ×2 (08:55→16:38)
[2017-11-19] MEDS: NICOTINE PATCH (21MG) 21 MG PATCH.TD24 TD SCH (08:55)
[2017-11-19] MEDS: methylPREDNISolone SOD SUCC 125 MG/2ML VIAL IV SCH ×2 (08:55→16:39)
[2017-11-19] MEDS: PANTOPRAZOLE 40 MG TABLET.DR PO SCH (08:55)
[2017-11-19] MEDS: ATORVASTATIN 40 MG TABLET PO SCH (08:55)
--- NOTE | 2017-11-19 12:38 | NUR ---
RN NOTES PT. WAS SEEN AND EXAMINED BY MARCIAL LUNDBERG NP FOR A SACRAL WOUND CONSULTATION.
[2017-11-19] MEDS: CADEXOMER IODINE 40 GM TUBE TP SCH ×2 (14:21→21:22)
--- NOTE | 2017-11-19 14:28 | NUR ---
RN NOTES SACRAL WOUND CARE PERFORMED PER MARCIAL LUNDBERG NP ORDERS. PT. TOLERATED WELL.
--- NOTE | 2017-11-19 15:30 | NUR ---
MS RN NOTES PATIENT TRANSFERRED FROM ROOM 308-2 TO 206 ACCOMPANIED BY NURSE CHIP GALLEGO AND PT'S DAUGHTER. A/O X3, CALM AND COOPERATIVE WITH NO C/O PAIN OR DISCOMFORTS VOICED AT THIS TIME. PT HAS BKA, DRESSING ON STUMP INTACT, CLEAN AND DRY WITH NO ACTIVE BLEEDING NOTED. ON ROOM AIR, BREATHING UNLABORED AND EVEN. PT HAS A RIGHT UPPER ARM MIDLINE WITH IVF OF NS @ 50 ML/HR INFUSING. URINAL AND BEDSIDE COMMODE PLACED AT BEDSIDE. PT KEPT ON KCI MATTRESS. BED PLACED IN LOWEST AND LOCKED POSITION WITH 2 SIDE RAILS UP. CALL LIGHT WITHIN REACH OF PT. WILL CONTINUE TO MONITOR.
--- NOTE | 2017-11-19 15:30 | NUR ---
RN NOTES TRANSFER TO ROOM 206 BED 2 TALKED TO REJI GÓMEZ VIA PHONE TO GIVE REPORT TO TRANSFER PT. TO ROOM 206 BED 2.
--- NOTE | 2017-11-19 15:45 | NUR ---
RN NOTES PT. WAS TRANSFERRED TO ROOM 206 BED 2 PT. LEFT 308 BED 2 WITH ALL BELONGINGS AND MEDICATIONS. PT.'S FAMILY WAS AT BEDSIDE DURING TRANSFER.
[2017-11-19 16:00] VITALS: BP 144/71
--- NOTE | 2017-11-19 18:47 | NUR ---
MS RN CLOSING NOTES PATIENT AWAKE IN BED WITH DAUGHTER AND SITTER AT BEDSIDE. A/O X3, QUIET, CALMED AND COOPERATIVE. ALL NEEDS AND CARE ATTENDED WELL. PT HAS BKA, DRESSING ON STUMP INTACT, CLEAN AND DRY WITH NO ACTIVE BLEEDING NOTED. ON ROOM AIR, BREATHING UNLABORED AND EVEN. KAMERON MIDLINE INTACT AND PATENT WITH IVF OF NS @ 50 ML/HR INFUSING WELL. URINAL AND BEDSIDE COMMODE KEPT AT BEDSIDE. KEPT BED IN LOWEST AND LOCKED POSITION WITH SIDE RAILS UP X2. CALL LIGHT WITHIN REACH OF PT. WILL ENDORSED TO BANK ACCOUNTANT NURSE FOR ERICA.
--- NOTE | 2017-11-19 19:30 | NUR ---
RN NOTE; RECEIVED PT IN BED AWAKE AND ALERT W/ FAMILY AT THE BED SIDE. BREATHING EVENLY. NO SOB. NAD. SKIN WARM AND DRY. NO C/O PAIN OR DISCOMFORT AT THIS TIME . SPOKE TO THE PT REGARDING CT SCAN IN AM. PT AGREE TO PROCEED W/ THE CT. NEEDS ATTENDED. ASSISTED W/ ADLS. BED LOW LOCKED. CALL LIGHT WITHIN REACH. WILL CONT TO MONITOR
[2017-11-19 20:00] VITALS: BP 140/65
--- NOTE | 2017-11-19 20:00 | NUR ---
SEEN AND EXAMINED BY DR. VILLAFUERTE, IT AUDITOR.
[2017-11-19] MEDS: QUETIAPINE FUMARATE 25 MG TABLET PO SCH (21:19)
--- NOTE | 2017-11-20 00:15 | NUR ---
PT W/ C/O MILD KNEE PAIN. PLACED A CALL TO DR. HUTCHISON AND GOT AN ORDER FOR PRN TYLENOL AND CALLED PHARMACY TO VERIFY THE ORDER.
[2017-11-20] MEDS: ACETAMINOPHEN 325 MG TABLET PO PRN (00:22)
[2017-11-20] MEDS: SIMETHICONE 80 MG TAB.CHEW PO SCH ×5 (00:24→17:17)
--- NOTE | 2017-11-20 00:25 | NUR ---
TYLENOL 650MG GIVEN FOR C/O MILD KNEE PAIN.. PT REFUSED SIMETHICONE AT THIS TIME AND REPORTED "MY STOMACH IS WORKING NORMAL" NO C/O ABD PAIN AT THIS TIME. WILL CONT TO MONITOR.
[2017-11-20] MEDS: INSULIN GLARGINE, 100 UNIT/ML CARTRIDGE SQ SCH ×3 (02:00→22:18)
[2017-11-20] MEDS: ALBUTEROL HALF STRENGTH 1.25 MG/3 ML VIAL.NEB NEB SCH ×6 (03:21→23:18)
[2017-11-20] MEDS: IPRATROPIUM NEB FS 0.5 MG/2.5 ML AMPUL.NEB NEB SCH ×6 (03:21→23:18)
--- NOTE | 2017-11-20 05:24 | NUR ---
LEVEMIR INSULIN AND SIMETHICONE WAS HELD DUE TO NPO STATUS FOR CT OF ABD, CHEST AND PELVIC. CHARGE NURSE , GIBSON, MADE AWARE.
[2017-11-20 06:58] LABS: HEMATOCRIT 42 % (39-51); HEMOGLOBIN 14.2 g/dL (13.5-17.5); LYMPHOCYTES % (AUTO) 10.1 % (20.0-44.0); MEAN CORPUSCULAR HEMOGLOBIN 30 PG (26.0-33.0); MEAN CORPUSCULAR HGB CONC 34 g/dl (31.0-36.0); MEAN CORPUSCULAR VOLUME 90 fL (80-96); MONOCYTES # (AUTO) 0.6 /CMM (0.1-1.30); MONOCYTES % (AUTO) 5.7 % (2.0-12.0); NEUTROPHILS # (AUTO) 8.6 /CMM (1.8-8.9); NEUTROPHILS % (AUTO) 84.2 % (43.0-81.0); PLATELET COUNT (AUTO) 174 /CMM (150-450); RDW COEFFICIENT OF VARIATION 13.4 (11.5-15.0); WHITE BLOOD COUNT (AUTO) 10.2 K/uL (4.3-11.0)
[2017-11-20 07:09] LABS: CALCIUM, SERUM 8.9 mg/dL (8.5-10.1); CARBON DIOXIDE 29 mmol/L (21-32); CHLORIDE 101 mmol/L (98-107); CREATININE 1.1 mg/dL (0.6-1.3); GLUCOSE 209 mg/dL (74-106); MAGNESIUM 1.7 mg/dL (1.8-2.4); POTASSIUM 3.9 mmol/L (3.5-5.1); SODIUM SERUM 136 mmol/L (136-145); UREA NITROGEN, BLOOD 28 mg/dL (7-18)
--- NOTE | 2017-11-20 07:26 | NUR ---
PT IN BED ALERT AND AWAKE. NO ACUTE EVENT DURING THE NIGHT . NO C/O PAIN OR DISCOMFORT . NO SOB. NPO FOR ABD CT. NEEDS ATTENDED .BED LOW LOCKED. CALL LIGHT WITHIN REACH. REPORT GIVEN TO DAY SHIFT RN FOR ERICA.
[2017-11-20] MEDS: BLOOD SUGAR DIAGNOSTIC 1 EACH STRIP IN SCH ×4 (07:30→22:23)
[2017-11-20 07:56] VITALS: BP 106/64
--- NOTE | 2017-11-20 07:56 | NUR ---
WOUND CARE CONSULT WOUND CARE RECEIVED CONSULT FOR SACRAL WOUND. WOUND CARE WILL DEFER CONSULT AND ALL TREATMENT PLANS TO SURGICAL TEAM WHO ARE CURRENTLY FOLLOWING.
[2017-11-20 08:00] VITALS: BP 106/64
[2017-11-20] MEDS: ASPIRIN 81 MG TAB.CHEW PO SCH (08:21)
[2017-11-20] MEDS: LACTOBACILLUS RHAMNOSUS GG 1 EACH CAP.SPRINK PO SCH ×2 (08:21→17:17)
[2017-11-20] MEDS: PANTOPRAZOLE 40 MG TABLET.DR PO SCH (08:22)
[2017-11-20] MEDS: CLOPIDOGREL BISULFATE 75 MG TABLET PO SCH (08:22)
[2017-11-20] MEDS: ATORVASTATIN 40 MG TABLET PO SCH (08:22)
[2017-11-20] MEDS: NICOTINE PATCH (21MG) 21 MG PATCH.TD24 TD SCH (08:26)
[2017-11-20] MEDS: methylPREDNISolone SOD SUCC 125 MG/2ML VIAL IV SCH (08:26)
[2017-11-20] MEDS: CADEXOMER IODINE 40 GM TUBE TP SCH ×2 (08:32→22:10)
[2017-11-20] MEDS ORDERED: IOHEXOL-300 100 ML VIAL IV ONE (08:46)
[2017-11-20] MEDS ORDERED: CT SWABBABLE VALVE TRANS SET 1 EA INFUS.SET MC ONE (08:46)
[2017-11-20] MEDS ORDERED: IV NS 0.9% 250 ML IV ONE (08:46)
--- NOTE | 2017-11-20 08:50 | NUR ---
MS/electric motor assembler Patient off floor at this time for CT scan, chart with patient.
--- NOTE | 2017-11-20 09:31 | NUR ---
MS/RN Back from radiology Patient back in room following CT scan, now able to eat and drink.
--- NOTE | 2017-11-20 10:05 | NUR ---
When documenting off loading, bilateral heels refers to right heel and left stump. Addendum: 11/20/17 at 1809 by BRYAN BURDEN Amended: Links added.
[2017-11-20] MEDS: INSULIN REGULAR, HUMAN 100 UNIT/ML 3 ML VIAL SQ PRN ×3 (11:29→22:21)
--- NOTE | 2017-11-20 12:30 | NUR ---
MS/RN Blood sugar Blood sugar at noon - 450, insulin coverage given as per sliding scale, MD informed of elevated blood sugar.
[2017-11-20] MEDS: Magnesium 1GM/D5W 100ML PREMIX 100 ML IV SCH ×2 (13:20→14:32)
--- NOTE | 2017-11-20 14:00 | NUR ---
MS/RN Dressing Sacral dressing changed as ordered.
--- NOTE | 2017-11-20 14:15 | NUR ---
MS/RN S/B Dr Vazquez Seen by Dr Vazquez - patient for discharge planning to SNF, family currently looking for suitable placement for patient in [facility].
--- NOTE | 2017-11-20 16:00 | NUR ---
MS/RN S/B Dr Soares Seen by Dr Soares - patient to remain in hospital until after CT guided biopsy. Informed that per Dr Vazquez patient was discharge planning. Stated that she would call and speak directly with him.
[2017-11-20 16:32] VITALS: BP 115/73
--- NOTE | 2017-11-20 17:40 | NUR ---
MS/RN Blood sugar Blood sugar at 5p - 235 - 4 units regular insulin administered per sliding scale.
--- NOTE | 2017-11-20 17:45 | NUR ---
MS/RN New orders New orders from Dr Vazquez: - D/C fluids -D/C solu-medrol - Change lantus insluin to 0900 and 2100 - Change mylicon to prn All above orders noted and carried out.
--- NOTE | 2017-11-20 19:30 | NUR ---
RECEIVED PT IN BED AWAKE AND ALERT. BREATHING EVENLY. NO SOB. NAD . SKIN WARM AND DRY. NO C/O PAIN OR DISCOMFORT. FAMILY AT THE BED SIDE. NEEDS ATTENDED . BED LOW LOCKED. CALL LIGHT WITHIN REACH. WILL CONT TO MONITOR ,
[2017-11-20 20:00] VITALS: BP 121/66
[2017-11-20] MEDS ORDERED: SIMETHICONE 80 MG TAB.CHEW PO PRN (20:30)
[2017-11-20] MEDS: QUETIAPINE FUMARATE 25 MG TABLET PO SCH (22:09)
--- NOTE | 2017-11-20 22:30 | NUR ---
RECEIVED A CALL FROM DR. URIOSTEGUI. W/ A CLARIFICATION OF HER NEW ORDER FOR CT GUIDED BIOPSY OF THE PELVIC MASS ONLY AND NOT THE LUNG MASS. NPO POST MIDNIGHT . PROCEDURE WAS DISCUSSED W/ PT W/ UNDERSTANDING. WILL ENDORSE TO DAYSHIFT TO INFORM THE DAUGHTER IN AM.
[2017-11-21] MEDS: IPRATROPIUM NEB FS 0.5 MG/2.5 ML AMPUL.NEB NEB SCH ×6 (03:30→23:30)
[2017-11-21] MEDS: ALBUTEROL HALF STRENGTH 1.25 MG/3 ML VIAL.NEB NEB SCH ×6 (03:30→23:30)
[2017-11-21 06:42] LABS: CALCIUM, SERUM 8.8 mg/dL (8.5-10.1); CARBON DIOXIDE 33 mmol/L (21-32); CHLORIDE 100 mmol/L (98-107); CREATININE 1.2 mg/dL (0.6-1.3); GLUCOSE 173 mg/dL (74-106); POTASSIUM 3.7 mmol/L (3.5-5.1); SODIUM SERUM 137 mmol/L (136-145); UREA NITROGEN, BLOOD 27 mg/dL (7-18)
[2017-11-21 06:47] LABS: INR 1.07 (0.87-1.13)
[2017-11-21] MEDS: BLOOD SUGAR DIAGNOSTIC 1 EACH STRIP IN SCH ×4 (07:00→21:30)
--- NOTE | 2017-11-21 07:08 | NUR ---
PT IN BED DOZING INTERMITTENTLY. BREATHING EVENLY. NO SOB. NO C/O PAIN OR DISCOMFORT . NPO FOR BX TODAY. BS:177 . NO INSULIN GIVEN FOR NPO STATUS. NEEDS ATTENDED, ASSISTED W/ ADLS. CALL LIGHT WITHING REACH. WILL CONT TO MONITOR AND WILL ENDORSE TO AM SHIFT FOR ERICA.
--- NOTE | 2017-11-21 07:30 | NUR ---
RN MS NOTES PT IN BED, AWAKE, ALERT AND ORIENTED, NO COMPLAINT OF PAIN, NOT IN DISTRESS, CALL LIGHT WITHIN REACH, PT INFORMED OF TODAY'S PROCEDURE CT GUIDED NEEDLE BIOPSY OF PELVIC MASS, DTR TIMOTHY INFORMED OF THE PLAN WELL, VERBALIZED UNDERSTANDING, HONG PT NPO, CALL LIGHT WITHIN REACH.
[2017-11-21 08:00] VITALS: BP 133/67
[2017-11-21] MEDS: NICOTINE PATCH (21MG) 21 MG PATCH.TD24 TD SCH (08:58)
[2017-11-21] MEDS: CADEXOMER IODINE 40 GM TUBE TP SCH ×2 (08:59→21:30)
[2017-11-21] MEDS: PANTOPRAZOLE 40 MG TABLET.DR PO SCH (09:00)
[2017-11-21] MEDS: CLOPIDOGREL BISULFATE 75 MG TABLET PO SCH (09:00)
[2017-11-21] MEDS: LACTOBACILLUS RHAMNOSUS GG 1 EACH CAP.SPRINK PO SCH ×2 (09:00→18:01)
[2017-11-21] MEDS: ASPIRIN 81 MG TAB.CHEW PO SCH (09:00)
[2017-11-21] MEDS: INSULIN GLARGINE, 100 UNIT/ML CARTRIDGE SQ SCH ×2 (09:00→21:39)
[2017-11-21] MEDS: ATORVASTATIN 40 MG TABLET PO SCH (09:00)
[2017-11-21] MEDS: INSULIN REGULAR, HUMAN 100 UNIT/ML 3 ML VIAL SQ PRN ×3 (13:26→21:41)
[2017-11-21] MEDS ORDERED: NALOXONE PREFILLED SYRINGE 2 MG/2 ML SYRINGE IV ONE (13:30)
[2017-11-21] MEDS ORDERED: MIDAZOLAM HCL 5MG/ML VIAL 25 MG/5 ML VIAL IV ONE (13:30)
[2017-11-21] MEDS ORDERED: FENTANYL PF 250MCG/5ML AMPUL IV ONE (13:30)
[2017-11-21 16:00] VITALS: BP 131/75
--- NOTE | 2017-11-21 16:16 | NUR ---
RT NOTE PATIENT REFUSED TX AFTER EXPLAINING RISKS AND BENEFITS. NO SOB NOTED. NURSE NOTIFIED AND IS AWARE.
--- NOTE | 2017-11-21 18:30 | NUR ---
RN MS NOTES PT IN BED, AWAKE, ALERT AND ORIENTED, NO COMPLAINT OF PAIN, NOT IN DISTRESS, BIOPSY OF PELVIC MASS NOT DONE DUE TO PLAVIX WAS HELD ONLY 2 DAYS, RADIOLOGY REQUIRES 5 DAYS, DR. BHAT AND DR. URIOSTEGUI INFORMED, TOLERATING CURRENT DIET WELL, ASSISTED WITH ADL'S, PM MEDS GIVEN, ALL NEEDS ATTENDED.
--- NOTE | 2017-11-21 19:30 | NUR ---
RECEIVED PT IN BED AWAKE AND ALERT. BREATHING EVENLY. NO SOB. NAD . SKIN WARM AND DRY. NO C/O PAIN OR DISCOMFORT. NEEDS ATTENDED . BED LOW LOCKED. CALL LIGHT WITHIN REACH. WILL CONT TO MONITOR ,
[2017-11-21 20:00] VITALS: BP 136/66
[2017-11-21] MEDS: ACETAMINOPHEN 325 MG TABLET PO PRN (21:31)
[2017-11-21] MEDS: QUETIAPINE FUMARATE 25 MG TABLET PO SCH (21:31)
--- NOTE | 2017-11-21 21:31 | NUR ---
TYLENOL GIVEN FOR C/O KNEE PAIN. WILL CONT TO MONITOR
[2017-11-22] MEDS: ALBUTEROL HALF STRENGTH 1.25 MG/3 ML VIAL.NEB NEB SCH ×6 (03:22→23:30)
[2017-11-22] MEDS: IPRATROPIUM NEB FS 0.5 MG/2.5 ML AMPUL.NEB NEB SCH ×6 (03:22→23:30)
[2017-11-22] MEDS: ACETAMINOPHEN 325 MG TABLET PO PRN ×2 (05:19→13:43)
--- NOTE | 2017-11-22 05:20 | NUR ---
TYLENOL GIVEN FOR C/O KNEE PAIN. WILL CONT TO MONITOR
[2017-11-22] MEDS: BLOOD SUGAR DIAGNOSTIC 1 EACH STRIP IN SCH ×4 (06:32→21:21)
[2017-11-22 06:35] LABS: BASOPHILS % (AUTO) 0.1 % (0.0-2.0); HEMATOCRIT 51 % (39-51); LYMPHOCYTES # (AUTO) 1.6 /CMM (0.8-4.8); LYMPHOCYTES % (AUTO) 12.2 % (20.0-44.0); MEAN CORPUSCULAR HEMOGLOBIN 30 PG (26.0-33.0); MEAN CORPUSCULAR HGB CONC 34 g/dl (31.0-36.0); MEAN CORPUSCULAR VOLUME 89 fL (80-96); MONOCYTES # (AUTO) 0.9 /CMM (0.1-1.30); NEUTROPHILS # (AUTO) 10.6 /CMM (1.8-8.9); NEUTROPHILS % (AUTO) 80.7 % (43.0-81.0); PLATELET COUNT (AUTO) 213 /CMM (150-450); RDW COEFFICIENT OF VARIATION 13.1 (11.5-15.0); RED BLOOD CELL COUNT(AUTO) 5.66 MIL/uL (4.5-6.0); WHITE BLOOD COUNT (AUTO) 13.1 K/uL (4.3-11.0)
--- NOTE | 2017-11-22 06:48 | NUR ---
PT IN BED AWAKE AND ALERT. STABLE . NO ACUTE EVENT DURING THE NIGHT . NEEDS ATTENDED. [id number] W/ ADLS. CALL LIGHT WITHIN REACH. WILL CONT TO MONITOR AND WILL ENDORSE TO AM SHIFT FOR ERICA.
[2017-11-22 06:49] LABS: CALCIUM, SERUM 9.5 mg/dL (8.5-10.1); CARBON DIOXIDE 29 mmol/L (21-32); CHLORIDE 98 mmol/L (98-107); CREATININE 1.1 mg/dL (0.6-1.3); GLUCOSE 124 mg/dL (74-106); MAGNESIUM 1.8 mg/dL (1.8-2.4); POTASSIUM 3.5 mmol/L (3.5-5.1); SODIUM SERUM 137 mmol/L (136-145); UREA NITROGEN, BLOOD 26 mg/dL (7-18)
--- NOTE | 2017-11-22 07:30 | NUR ---
RN NOTES PATIENT ALERT AND ORIENTED X3, NO DISTRESS NOTED, BREATHING EVEN AND UNLABORED, DENIES PAIN OR DISCOMFORT, NEEDS ATTENDED, CALL LIGHT WITHIN REACH, WILL CONTINUE TO MONITOR.
[2017-11-22] MEDS: CLOPIDOGREL BISULFATE 75 MG TABLET PO SCH (09:00)
[2017-11-22] MEDS: ASPIRIN 81 MG TAB.CHEW PO SCH (09:00)
[2017-11-22 09:12] VITALS: BP 128/67
[2017-11-22] MEDS: ATORVASTATIN 40 MG TABLET PO SCH (09:59)
[2017-11-22] MEDS: PANTOPRAZOLE 40 MG TABLET.DR PO SCH (10:00)
[2017-11-22] MEDS: LACTOBACILLUS RHAMNOSUS GG 1 EACH CAP.SPRINK PO SCH (10:00)
[2017-11-22] MEDS: NICOTINE PATCH (21MG) 21 MG PATCH.TD24 TD SCH (10:00)
[2017-11-22] MEDS: CADEXOMER IODINE 40 GM TUBE TP SCH ×2 (10:01→21:27)
[2017-11-22] MEDS: INSULIN GLARGINE, 100 UNIT/ML CARTRIDGE SQ SCH ×2 (10:07→21:30)
[2017-11-22] MEDS: INSULIN REGULAR, HUMAN 100 UNIT/ML 3 ML VIAL SQ PRN ×2 (12:25→17:59)
--- NOTE | 2017-11-22 15:00 | NUR ---
RN NOTES RECEIVED ORDER FROM DR. BHAT FOR ULTRAM D/T PATIENT C/O LEG PAIN.
[2017-11-22 16:00] VITALS: BP 111/68
[2017-11-22] MEDS: TRAMADOL HCL 50 MG TABLET PO PRN (18:32)
--- NOTE | 2017-11-22 19:00 | NUR ---
RN NOTES PATIENT ALERT AND ORIENTED X3, BREATHING EVEN AND UNLABORED, NO SOB NOTED. WOUND TREATMENT RENDERED, PATIENT AMBULATES TO RESTROOM WITH SUPERVISION, NEEDS ATTENDED AND MET, CALL LIGHT WITHIN REACH, WILL ENDORSE TO ASTRONAUT [employer] SPECIALIST FOR ERICA.
--- NOTE | 2017-11-22 19:35 | NUR ---
MS RN NOTES RECEIVED ON BED A/O X3-4,DAUGHTER AT BEDSIDE.LEFT BKA NOTED,WITH PROSTHESIS AT BEDSIDE.NOTED DRY WOUND ON SACRAL AREA,COVERED WITH MEPILEX TO PREVENT FURTHER IRRITATION.WITH RIGHT UPPER ARM MIDLINE,NS AT TKO.SALT MANAGER SOB.CALL LIGHT IN REACH,NEEDS ANTICIPATED.
[2017-11-22 20:00] VITALS: BP 126/68
--- NOTE | 2017-11-22 20:05 | NUR ---
MS RN NOTES MD VISIT SEEN BY DR URIOSTEGUI ONCOLOGIST,SPOKE WITH PATIENT DAUGHTER.PLAN FOLLOW UP WITH ONCOLOGIST OUTPATIENT FOR PELVIC MASS BIOPSY PER DAUGHTER REQUEST.
--- NOTE | 2017-11-22 21:00 | NUR ---
MS RN NOTES ACCU-CHECK BLOOD SUGAR CHECK 123,NO INSULIN COVERAGE.DUE LANTUS 10 UNITS ADMINISTERED SQ VIA LEFT DELTOID SCHEDULED.PROVIDED SNACKS AT BEDSIDE.
[2017-11-22] MEDS: QUETIAPINE FUMARATE 25 MG TABLET PO SCH (21:20)
[2017-11-22 22:26] VITALS: BP 126/60
--- NOTE | 2017-11-23 | NUR ---
MS RN NOTES STILL AWAKE,WATCHING TV PROGRAM.REFUSED BREATHING TREATMENT PER RT.
[2017-11-23] MEDS: ALBUTEROL HALF STRENGTH 1.25 MG/3 ML VIAL.NEB NEB SCH ×6 (03:30→23:30)
[2017-11-23] MEDS: IPRATROPIUM NEB FS 0.5 MG/2.5 ML AMPUL.NEB NEB SCH ×6 (03:30→23:30)
[2017-11-23] MEDS: BLOOD SUGAR DIAGNOSTIC 1 EACH STRIP IN SCH ×4 (05:53→22:25)
[2017-11-23] MEDS: INSULIN REGULAR, HUMAN 100 UNIT/ML 3 ML VIAL SQ PRN ×4 (05:54→22:28)
--- NOTE | 2017-11-23 06:30 | NUR ---
MS RN NOTES ACCU-CHECK BLOOD SUGAR CHECK 142,COVERED WITH HUMULIN R 2 UNITS PER SLIDING SCALE,GIVEN SQ VIA RIGHT DELTOID.
[2017-11-23 06:42] LABS: HEMATOCRIT 47 % (39-51); HEMOGLOBIN 15.8 g/dL (13.5-17.5); LYMPHOCYTES # (AUTO) 1.4 /CMM (0.8-4.8); LYMPHOCYTES % (AUTO) 11.2 % (20.0-44.0); MEAN CORPUSCULAR HEMOGLOBIN 30 PG (26.0-33.0); MEAN CORPUSCULAR HGB CONC 34 g/dl (31.0-36.0); MEAN CORPUSCULAR VOLUME 89 fL (80-96); MONOCYTES # (AUTO) 0.9 /CMM (0.1-1.30); MONOCYTES % (AUTO) 7.3 % (2.0-12.0); NEUTROPHILS # (AUTO) 9.9 /CMM (1.8-8.9); NEUTROPHILS % (AUTO) 81.5 % (43.0-81.0); PLATELET COUNT (AUTO) 167 /CMM (150-450); RDW COEFFICIENT OF VARIATION 13.4 (11.5-15.0); RED BLOOD CELL COUNT(AUTO) 5.24 MIL/uL (4.5-6.0); WHITE BLOOD COUNT (AUTO) 12.2 K/uL (4.3-11.0)
--- NOTE | 2017-11-23 07:13 | NUR ---
MS RN NOTES NO SIGNIFICANT CHANGE IN STATUS.POSSIBLE D/C HOME WITH OUTPT FOLLOW UP WITH DR URIOSTEGUI ONCOLOGIST.WILL ENDORSE TO DAY NURSE FOR ERICA.
[2017-11-23 07:25] LABS: CALCIUM, SERUM 9.4 mg/dL (8.5-10.1); CARBON DIOXIDE 35 mmol/L (21-32); CHLORIDE 100 mmol/L (98-107); CREATININE 1.2 mg/dL (0.6-1.3); GLUCOSE 136 mg/dL (74-106); MAGNESIUM 1.8 mg/dL (1.8-2.4); PHOSPHORUS 3.4 mg/dL (2.5-4.9); POTASSIUM 4.5 mmol/L (3.5-5.1); SODIUM SERUM 140 mmol/L (136-145); UREA NITROGEN, BLOOD 23 mg/dL (7-18)
[2017-11-23 08:00] VITALS: BP 131/59
--- NOTE | 2017-11-23 08:00 | NUR ---
MS 2 RN AM NOTES PATIENT ALERT AND ORIENTED X3, DENIES PAIN OR DISTRESS.BREATHING EVEN AND UNLABORED, DENIES PAIN OR DISCOMFORT, CALL LIGHT WITHIN REACH, WILL CONTINUE TO MONITOR.
[2017-11-23] MEDS: INSULIN GLARGINE, 100 UNIT/ML CARTRIDGE SQ SCH ×2 (08:44→21:00)
[2017-11-23] MEDS: PANTOPRAZOLE 40 MG TABLET.DR PO SCH (08:45)
[2017-11-23] MEDS: ATORVASTATIN 40 MG TABLET PO SCH (08:47)
[2017-11-23] MEDS: TRAMADOL HCL 50 MG TABLET PO PRN ×2 (08:47→22:34)
[2017-11-23] MEDS: NICOTINE PATCH (21MG) 21 MG PATCH.TD24 TD SCH (08:47)
[2017-11-23] MEDS: ASPIRIN 81 MG TAB.CHEW PO SCH (08:48)
[2017-11-23] MEDS: CADEXOMER IODINE 40 GM TUBE TP SCH ×2 (08:49→21:00)
--- NOTE | 2017-11-23 13:56 | NUR ---
BIOPSY WAS CHARGED A BIOPSY, WAS NOT A BIOPSY DUE TO COMPLICATIOS. iT WAS POSTPONED FOR A LATER GEOFFREY. SHOULD OF BEEN CHARGED A CT PELVIS W/O CONTRAST. THERE WAS NEVER ANY INTERVENTION DONE ON THIS DAY.
[2017-11-23 16:00] VITALS: BP_SYST 120; BP_SYST 131; BP_DIAS 59; BP_DIAS 62
--- NOTE | 2017-11-23 18:00 | NUR ---
PT LYING IN BED COMFORTABLY WITH DAUGHTERALEXYS AT BEDSIDE WHO SIGNED THE CONSENT FOR CT GUIDED NEEDLE BIOPSY OF RT PELVIC MASS FOR TOMORROW AM BY DR JAMES.CONSENT HAS BEEN SIGNED.INSTRUCTED PT TO BE ON NPO POST MIDNIGHT.PT VERBALIZED UNDERSTANDING OF INSTRUCTIONS GIVEN.CALL LIGHT WITHIN REACH.
--- NOTE | 2017-11-23 19:30 | NUR ---
MS2/RN RECEIVE PATIENT AWAKE, ALERT, ORIENTED, COMFORTABLE, NO C/O PAIN, NO DISTRESS NOTED, CALL LIGHT IN REACH. WILL MONITOR.
[2017-11-23 20:00] VITALS: BP 122/65
[2017-11-23] MEDS: QUETIAPINE FUMARATE 25 MG TABLET PO SCH (22:25)
--- NOTE | 2017-11-23 22:38 | NUR ---
MS2/RN PATIENT IS NPO POST MIDNIGHT FOR PROCEDURE IN A.M., NO IVF, BLOOD SUGAR 240 LANTUS 10 UNITS WAS HELD BY RUBÉN RICH.
--- NOTE | 2017-11-23 23:41 | NUR ---
RT NOTE PATIENT REFUSED TREATMENT AT THIS TIME. NO SIGNS OF RESPIRATORY DISTRESS NOTED. PRIMARY NURSE NOTIFIED AND AWARE. Addendum: 11/23/17 at 2342 by FRANCHESCA CARRASCO RT Amended: Links added.
[2017-11-24] MEDS: ALBUTEROL HALF STRENGTH 1.25 MG/3 ML VIAL.NEB NEB SCH ×4 (03:30→15:30)
[2017-11-24] MEDS: IPRATROPIUM NEB FS 0.5 MG/2.5 ML AMPUL.NEB NEB SCH ×4 (03:30→15:30)
--- NOTE | 2017-11-24 03:49 | NUR ---
RT NOTE PATIENT REFUSE TX. NO SIGNS OF RESPIRATORY DISTRESS NOTED. PRIMARY NURSE NOTIFIED AND AWARE. Addendum: 11/24/17 at 0351 by FRANCHESCA CARRASCO RT Amended: Links added.
[2017-11-24] MEDS: BLOOD SUGAR DIAGNOSTIC 1 EACH STRIP IN SCH ×2 (06:11→13:44)
[2017-11-24 06:28] LABS: BASOPHILS % (AUTO) 0.1 % (0.0-2.0); HEMATOCRIT 40 % (39-51); HEMOGLOBIN 13.5 g/dL (13.5-17.5); LYMPHOCYTES # (AUTO) 1.3 /CMM (0.8-4.8); LYMPHOCYTES % (AUTO) 14.9 % (20.0-44.0); MEAN CORPUSCULAR HEMOGLOBIN 31 PG (26.0-33.0); MEAN CORPUSCULAR HGB CONC 34 g/dl (31.0-36.0); MEAN CORPUSCULAR VOLUME 89 fL (80-96); MONOCYTES # (AUTO) 0.8 /CMM (0.1-1.30); MONOCYTES % (AUTO) 9.6 % (2.0-12.0); NEUTROPHILS # (AUTO) 6.4 /CMM (1.8-8.9); NEUTROPHILS % (AUTO) 75.4 % (43.0-81.0); PLATELET COUNT (AUTO) 171 /CMM (150-450); RDW COEFFICIENT OF VARIATION 13.7 (11.5-15.0); RED BLOOD CELL COUNT(AUTO) 4.43 MIL/uL (4.5-6.0); WHITE BLOOD COUNT (AUTO) 8.5 K/uL (4.3-11.0)
[2017-11-24 06:29] LABS: CALCIUM, SERUM 8.6 mg/dL (8.5-10.1); CARBON DIOXIDE 30 mmol/L (21-32); CHLORIDE 101 mmol/L (98-107); CREATININE 1.2 mg/dL (0.6-1.3); GLUCOSE 224 mg/dL (74-106); INR 0.96 (0.87-1.13); MAGNESIUM 1.7 mg/dL (1.8-2.4); PHOSPHORUS 3.1 mg/dL (2.5-4.9); POTASSIUM 3.9 mmol/L (3.5-5.1); SODIUM SERUM 139 mmol/L (136-145); UREA NITROGEN, BLOOD 21 mg/dL (7-18)
--- NOTE | 2017-11-24 06:30 | NUR ---
MS2/RN MIDLINE DRESSING WAS CHANGED ASEPTICALLY. PATIENT AWAKE, ALERT, ORIENTED, COMFORTABLE, NPO AFTER MIDNIGHT. ALL NEEDS ATTENDED AT THIS TIME. WILL CONTINUE TO MONITOR.
[2017-11-24 08:00] VITALS: BP 132/71
--- NOTE | 2017-11-24 08:15 | NUR ---
ms/rn notes patient resting in bed awake and oriented, in no apparent distress, respirations even and unlabored, on room air. patient denies any pain or discomfort at this time. patient noted with sacral wound, dressing soiled, left BKA. able to ambulate, and re-position self. herbert midline h/l. pending ct guided biopsy of right pelvic mass, npo except meds. will continue to monitor.
[2017-11-24] MEDS: INSULIN GLARGINE, 100 UNIT/ML CARTRIDGE SQ SCH (09:00)
[2017-11-24] MEDS: CADEXOMER IODINE 40 GM TUBE TP SCH (09:00)
[2017-11-24] MEDS: ATORVASTATIN 40 MG TABLET PO SCH (09:10)
[2017-11-24] MEDS: ASPIRIN 81 MG TAB.CHEW PO SCH (09:10)
[2017-11-24] MEDS: NICOTINE PATCH (21MG) 21 MG PATCH.TD24 TD SCH (09:10)
[2017-11-24] MEDS: PANTOPRAZOLE 40 MG TABLET.DR PO SCH (09:10)
[2017-11-24] MEDS ORDERED: FENTANYL PF 250MCG/5ML AMPUL IV ONE (11:30)
[2017-11-24] MEDS ORDERED: MIDAZOLAM HCL 5MG/ML VIAL 25 MG/5 ML VIAL IV ONE (11:30)
[2017-11-24] MEDS ORDERED: NALOXONE PREFILLED SYRINGE 2 MG/2 ML SYRINGE IV PRN (11:30)
--- NOTE | 2017-11-24 11:30 | NUR ---
MS/RN NOTES PATIENT TAKEN DOWN FOR CT NEEDLE BIOPSY OF PELVIS.
[2017-11-24] MEDS: Magnesium 1GM/D5W 100ML PREMIX 100 ML IV SCH ×2 (12:30→13:42)
--- NOTE | 2017-11-24 13:28 | NUR ---
MS/RN NOTES PATIENT BACK FROM CT BIOPSY OF PELVIS IN STABLE CONDITION, ALERT AND COHERENT. VITAL SIGNS STABLE AND WN. POSSIBLE DISCHARGE, DAUGHTER AT BEDSIDE. WILL CONTINUE TO MONITOR
--- NOTE | 2017-11-24 14:00 | NUR ---
MS/RN NOTES PATIENT RESTING IN BED ASKING FOR FOOD, ACCUCHECK DONE 185MG/DL NO COVERAGE AT THIS TIME DUE TO NPO STATUS. WILL START FEEDINGS AT TOLERATED. DR. BHAT AWARE. WILL CONTINUE TO MONITOR FOR S/S HYPO/HYPERGLYCEMIA
[2017-11-24] MEDS ORDERED: LISI2.5T2 PO (14:02)
[2017-11-24] MEDS ORDERED: METO25TA3 PO (14:02)
[2017-11-24] MEDS: TRAMADOL HCL 50 MG TABLET PO PRN (14:14)
[2017-11-24 16:00] VITALS: BP 120/56
[2017-11-24] MEDS: INSULIN REGULAR, HUMAN 100 UNIT/ML 3 ML VIAL SQ PRN (17:58)
--- NOTE | 2017-11-24 18:43 | NUR ---
DISCHARGE NOTE ORDER RECEIVED FOR DISCHARGE,ALL DISCHARGE INSTRUCTIONS GIVEN TO PATIENT AND FAMILY, ALL FORMS SIGNED, COMPLETED, COPIED AND PLACED IN CHART. PRESCRIPTION PROVIDED TO PATIENT AND PROVIDED INSTRUCTIONS ON MEDICATION USAGE, DOSAGE, ROUTE, FREQUENCY. PATIENT/FAMILY VERBALIZED UNDERSTANDING. IV MIDLINE REMOVED AND COVERED PROPERLY. PICTURES OF ALL WOUNDS TAKEN AND PLACED IN CHART. PATIENT AGREED TO DISCHARGE, LEFT HOSPITAL WITH DAUGHTER VIA PRIVATE CAR
== END 2017-11-24 18:30 | disposition home or self-care (01) | DRG 207 ==
LOC: ER 00:08 → ICU 02:58 → MED 11-16 11:34 → MEDSG2 11-19 15:13
PROVIDERS: ADMIT Nurse Practitioner Acute Care; ATTEND Nurse Practitioner Acute Care
PROC: 5A1955Z Respiratory Ventilation, Greater than 96 Consecutive Hours (ICD-10-PCS; principal; 2017-11-11)
PROC: 0BH17EZ Insertion of Endotracheal Airway into Trachea, Via Natural or Artificial Opening (ICD-10-PCS; 2017-11-11)
PROC: 05H533Z Insertion of Infusion Device into Right Subclavian Vein, Percutaneous Approach (ICD-10-PCS; 2017-11-11)
PROC: 0BDC8ZX Extraction of Right Upper Lung Lobe, Via Natural or Artificial Opening Endoscopic, Diagnostic (ICD-10-PCS; 2017-11-14)
PROC: 0HBAXZX Excision of Inguinal Skin, External Approach, Diagnostic (ICD-10-PCS; 2017-11-24)
DX: J96.01 Acute respiratory failure with hypoxia (principal); I21.A1 Myocardial infarction type 2; G93.41 Metabolic encephalopathy; N17.9 Acute kidney failure, unspecified; L89.150 Pressure ulcer of sacral region, unstageable; E44.0 Moderate protein-calorie malnutrition; E11.22 Type 2 diabetes mellitus with diabetic chronic kidney disease; E11.51 Type 2 diabetes mellitus with diabetic peripheral angiopathy without gangrene; J44.0 Chronic obstructive pulmonary disease with (acute) lower respiratory infection; I42.9 Cardiomyopathy, unspecified; I13.0 Hypertensive heart and chronic kidney disease with heart failure and stage 1 through stage 4 chronic kidney disease, or unspecified chronic kidney disease; I50.22 Chronic systolic (congestive) heart failure; J44.1 Chronic obstructive pulmonary disease with (acute) exacerbation; E87.2 Acidosis; C34.90 Malignant neoplasm of unspecified part of unspecified bronchus or lung; J96.02 Acute respiratory failure with hypercapnia; E83.42 Hypomagnesemia; E78.5 Hyperlipidemia, unspecified; I25.10 Atherosclerotic heart disease of native coronary artery without angina pectoris; Z86.73 Personal history of transient ischemic attack (TIA), and cerebral infarction without residual deficits; Z95.1 Presence of aortocoronary bypass graft; Z89.512 Acquired absence of left leg below knee; Z79.84 Long term (current) use of oral hypoglycemic drugs; E87.6 Hypokalemia; F17.210 Nicotine dependence, cigarettes, uncomplicated; R59.0 Localized enlarged lymph nodes; E11.65 Type 2 diabetes mellitus with hyperglycemia; N18.3 Chronic kidney disease, stage 3 (moderate); I67.2 Cerebral atherosclerosis; E88.09 Other disorders of plasma-protein metabolism, not elsewhere classified; Z68.23 Body mass index [BMI] 23.0-23.9, adult; L98.8 Other specified disorders of the skin and subcutaneous tissue; R19.09 Other intra-abdominal and pelvic swelling, mass and lump; I65.23 Occlusion and stenosis of bilateral carotid arteries; E27.8 Other specified disorders of adrenal gland; L89.90 Pressure ulcer of unspecified site, unspecified stage; C76.3 Malignant neoplasm of pelvis
CPT/HCPCS: 31623; 31720; 36415; 36600; 70450-TC; 70496-TC; 70498-TC; 71045-TC; 71250-TC; 71260-TC; 73501; 76942-TC; 77012-TC; 80048-TC; 80053-TC; 80061-TC; 80202-TC; 81000-TC; 82570-TC; 82803-TC; 82962-TC; 83605-TC; 83735-TC; 83880; 84100-TC; 84155-TC; 84300-TC; 84443-TC; 84484-TC; 85025-TC; 85610-TC; 85730-TC; 87040-TC; 87081-TC; 87086-TC; 88305-TC; 88312-TC; 88342; 92526; 92611-TC; 93307-TC; 94003-TC; 94799-TC; 97110-TC; 97116-TC; 97530-TC; A4217; A4606; A6402; A6403; C9113; J1815; J2250; J2310; J2543; J2930; J3010; J3370; J3475; J3490; J7030; J7040; J7050; J7060; Q9967; Z7610